=== PATIENT | female | born 1945 | race Caucasian/White ===

== ENCOUNTER 2017-02-05 05:13 | Observation (INO) ==
--- NOTE | 2017-02-05 05:32 | Emergency Department Note ---
Disposition Clinical Impression: Hypertensive urgency Congestive heart failure Qualifiers: Congestive heart failure type: unspecified congestive heart failure type Congestive heart failure chronicity: unspecified congestive heart failure chronicity Qualified Code(s): I50.9 - Heart failure, unspecified Asthma with exacerbation Qualifiers: Asthma severity: moderate persistent Qualified Code(s): J45.41 - Moderate persistent asthma with (acute) exacerbation Disposition: Admitted As Inpatient Condition: Good SOB HPI - General Chief Complaint: ED Shortness of Breath/Dyspnea Stated Complaint: high BP and Difficulty breathing Source: patient, EMS Mode of arrival: EMS Limitations: no limitations Nursing Notes Reviewed: Yes Vital Signs Reviewed: Yes - History of Present Illness Patient presents to the ED via EMS complaining of shortness of breath and high blood pressure. States she started feeling short of breath last night. She took her blood pressure at home and it was 198/99. She also reports an intermittent pressure in the left side of her chest that started last night as well. She rates it as 6 out of 10. She has had nausea but no vomiting. No lightheadedness or dizziness. She has had a dry cough for the past few days and some runny nose that she attributes to allergies. No nasal congestion or sore throat. She also reports intermittent cramping spasm type pain around her left ear that has been intermittent for months. She states she had brain surgery at [place] 7 years ago to remove something abnormal. States she was told that she had more of these spots in her brain that needed to be watched over time. She has not followed up with neurology in several years. She denies any abdominal pain. States she has had frequent loose bowel movements for many years. States she had a colonoscopy at one point that was normal. She does report blurred vision but states this is chronic and she has poor vision and has an eye appointment in February. She has a history of asthma and states she has been wheezing some recently. She is currently out of her inhaler which is just used as needed. She has a remote history of smoking as a teen. Denies any alcohol or drug use. She has a history of hypertension and is on metoprolol as well as lisinopril/hydrochlorothiazide. Overall is increased 200 mg daily last month. She is a diabetic on metformin. Fingerstick glucose by EMS was 1:30. States she occasionally has some swelling in her legs with no recent increase. Denies any cardiac history. - Related Data Home Medications Medication Instructions Recorded Confirmed Metoprolol [Lopressor] 200 mg PO QDPC 01/25/15 12/15/15 Atorvastatin [Lipitor] 20 mg PO HS 02/05/17 02/05/17 Lisinopril-HCTZ 20-12.5 [Prinzide 1 tab PO DAILY 02/05/17 02/05/17 20-12.5] Meloxicam [Mobic] 15 mg PO DAILY 02/05/17 02/05/17 metFORMIN 1,000 mg PO BID 02/05/17 02/05/17 Previous Rx's Medication Instructions Recorded Albuterol Sulfate [Albuterol 2 puff IH Q6HR PRN #1 hfa.aer.ad 11/23/15 Inhaler] Allergies Allergy/AdvReac Type Severity Reaction Status Date / Time aspirin AdvReac Nausea Verified 02/05/17 05:33 Constitutional: Denies: fever, chills, weakness, weight change Eyes: Denies: eye pain, eye discharge, vision change ENT ED: Denies: ear pain, throat pain, dental pain, hearing loss, epistaxis, congestion, dysphagia Cardiovascular: Reports: chest pain, edema. Denies: palpitations, dyspnea on exertion, syncope Respiratory: Reports: cough, dyspnea, wheezes. Denies: hemoptysis, stridor, sputum production Gastrointestinal: Reports: nausea, diarrhea (chronic). Denies: abdominal pain, vomiting, constipation, hematemesis, melena, hematochezia Genitourinary: Denies: dysuria, frequency, hematuria, discharge Musculoskeletal: Denies: back pain, neck pain, arthralgia, myalgia Integumentary: Denies: rash, abrasion, lesions Neurological: Reports: as per HPI, headache. Denies: weakness, numbness, paresthesias, confusion, abnormal gait, vertigo Psychiatric: Denies: anxiety, depression, suicidal thoughts, homicidal thoughts , auditory hallucinations, visual hallucinations Endocrine: Denies: fatigue Hematological/Lymphatic: Denies: easy bleeding, easy bruising Allergic/Immunologic: Denies: facial swelling, urticaria Past Medical History - Past Medical History Medical history: Reports: arthritis, asthma, hyperlipidemia, hypertension Surgical history: Reports: appendectomy, breast surgery, cholecystectomy, hysterectomy Psychiatric history: Reports: no psych history CLINICAL MOLECULAR GENETICIST history: Reports: no CLINICAL MOLECULAR GENETICIST history, bilateral tubal ligation - Social History Smoking Status: Former smoker Smokeless Tobacco Status: No Alcohol use: Reports: none Drug use: Reports: none Physical Exam - General Limitations: no limitations General appearance: alert, in no apparent distress, obese - Head Head exam: atraumatic, normocephalic, normal inspection - Eye Eye exam: Present: normal appearance, PERRL, EOMI - ENT ENT exam: normal exam, normal oropharynx, mucous membranes moist - Neck Neck exam: Present: normal inspection, full ROM, trachea midline - Chest Chest inspection: Present: normal inspection, symmetric chest wall rise, tenderness (left upper chest) - Respiratory Respiratory exam: Present: wheezes (scattered end expiratory). Absent: respiratory distress, accessory muscle use - Cardiovascular Cardiovascular exam: Present: regular rate, normal rhythm, normal heart sounds - Abdominal Exam Abdominal exam: Present: soft, Non-Tender. Absent: tenderness, distention, guarding, rebound, rigidity - Extremities Exam Extremities exam: Present: normal inspection, full ROM, pedal edema (trace bilaterally). Absent: tenderness - Back Exam Back exam: Present: normal inspection, full ROM. Absent: tenderness - Neurological Exam Neurological exam: Present: alert, oriented X3, CN II-XII intact, normal gait. Absent: motor sensory deficit - Expanded Neurological Exam Speech: Present: fluid speech Motor strength - LUE: 5/5 Motor strength - RUE: 5/5 Motor strength - LLE: 5/5 Motor strength - RLE: 5/5 - Psychiatric Psychiatric exam: Present: normal affect, normal mood - Skin Skin exam: Present: warm, dry, intact, normal color Course Course Narrative: Patient presents to the ED with shortness of breath, chest discomfort and hypertension. She is hypertensive on arrival at 206/98. Oxygen saturation is 92-93% on room air. She is not in any respiratory distress but does have some scattered end expiratory wheezing. Will give an albuterol treatment and obtain chest x-ray. Given her symptoms will give a small dose of labetalol for her current hypertensive urgency. We will check routine labs and EKG. Will also obtain CT scan of the head given her unclear history of prior brain surgery with current head pain. - Reevaluation(s) Reevaluation #1: Blood pressure has responded well to labetalol with improvement to 139/77. Head CT shows a small meningioma but no other acute abnormalities. This is likely what patient had surgery on the past. Laboratory studies showed no leukocytosis. Creatinine is slightly elevated from over a year ago. BNP is elevated at 335. Chest x-ray shows some mild pulmonary vascular congestion and small left pleural effusion. Feel patient would likely benefit from a small amount of diuresis and additional nebulizer treatments. Patient is agreeable to staying overnight for additional treatment and monitoring of her creatinine and blood pressure as well as continued nebulizer treatments. I spoke to the hospitalist on-call, Dr. Romano, who has agreed to accept the patient. Vital Signs Temperature 98.4 F 02/05/17 05:15 Pulse Rate 74 02/05/17 05:15 Respiratory Rate 22 02/05/17 05:15 Blood Pressure 206/98 02/05/17 05:15 O2 Sat by Pulse Oximetry 93 02/05/17 05:15 Temperature 98.4 F 02/05/17 05:15 Pulse Rate 62 02/05/17 07:14 Respiratory Rate 16 02/05/17 07:14 Blood Pressure 143/66 02/05/17 07:14 O2 Sat by Pulse Oximetry 94 02/05/17 07:14 Oxygen Delivery Oxygen Delivery Nasal Cannula Shortness of Breath/Dyspnea - Differential Diagnosis Likely: congestive heart failure, pneumonia, asthma with exacerbation - Medical Records Medical records reviewed: Yes I reviewed the patient's medical records. - Lab Data Lab results reviewed: Yes I reviewed the patient's lab results. Result diagrams: 02/05/17 05:50 02/05/17 05:50 Lab Results 02/05/17 02/05/17 02/05/17 Range/Units 05:50 05:50 05:50 WBC 7.6 (4.3-11.1) K/mcL RBC 4.60 (3.82-4.97) M/mcL Hgb 13.4 (11.5-15.4) g/dL Hct 41.6 (35.3-44.9) % MCV 90.4 (83.0-100.0) fL MCH 29.1 (28.0-33.3) pg MCHC 32.2 (31.6-35.5) g/dL RDW 13.4 (11.5-14.5) % Plt Count 203 (140-400) K/mcL MPV 10.2 (9.4-12.4) fL Immature Gran % 0.5 (0-4) % Seg Neutrophils % 75.4 % Lymphocytes % 17.4 % Monocytes % 5.4 % Eosinophils % 1.0 % Basophils % 0.3 % Neutrophils # 5.8 (1.6-8.9) K/mcL Lymphocytes # 1.3 (0.6-4.6) K/mcL Monocytes # 0.4 (0.0-1.3) K/mcL Eosinophils # 0.1 (0.0-0.6) K/mcL Basophils # 0.0 (0.0-0.2) K/mcL Sodium 143 (136-145) mEq/L Potassium 3.6 (3.5-4.5) mEq/L Chloride 103 (98-109) mEq/L Carbon Dioxide 28 (19-29) mEq/L BUN 23 H (7-20) mg/dL Creatinine 1.14 H (0.57-1.11) mg/dL Est GFR ( Amer) 57 L (> 60) Est GFR (Non-Af Amer) 47 L (> 60) BUN/Creatinine Ratio 20 (6-26) Glucose 136 H (70-99) mg/dL Calculated Osmolality 302 H (280-300) Calcium 9.4 (8.6-10.8) mg/dL Troponin I 0.01 (0-0.03) ng/mL B-Natriuretic Peptide (0-100) pg/mL 02/05/17 Range/Units 05:50 WBC (4.3-11.1) K/mcL RBC (3.82-4.97) M/mcL Hgb (11.5-15.4) g/dL Hct (35.3-44.9) % MCV (83.0-100.0) fL MCH (28.0-33.3) pg MCHC (31.6-35.5) g/dL RDW (11.5-14.5) % Plt Count (140-400) K/mcL MPV (9.4-12.4) fL Immature Gran % (0-4) % Seg Neutrophils % % Lymphocytes % % Monocytes % % Eosinophils % % Basophils % % Neutrophils # (1.6-8.9) K/mcL Lymphocytes # (0.6-4.6) K/mcL Monocytes # (0.0-1.3) K/mcL Eosinophils # (0.0-0.6) K/mcL Basophils # (0.0-0.2) K/mcL Sodium (136-145) mEq/L Potassium (3.5-4.5) mEq/L Chloride (98-109) mEq/L Carbon Dioxide (19-29) mEq/L BUN (7-20) mg/dL Creatinine (0.57-1.11) mg/dL Est GFR ( Amer) (> 60) Est GFR (Non-Af Amer) (> 60) BUN/Creatinine Ratio (6-26) Glucose (70-99) mg/dL Calculated Osmolality (280-300) Calcium (8.6-10.8) mg/dL Troponin I (0-0.03) ng/mL B-Natriuretic Peptide 335 H (0-100) pg/mL - Radiology Data Radiology results reviewed: Yes I reviewed the patient's radiology results. ITS Impressions Chest X-Ray 02/05/17 05:32 IMPRESSION: Stable chest. Stable cardiomegaly. Low lung volumes. Mild pulmonary vascular congestion. Small left pleural effusion. D/ / Titus Boyd MD / Titus Boyd MD Interpreting Provider: Titus Boyd MD Head CT 02/05/17 05:33 IMPRESSION: 1. No acute intracranial abnormality. 2. Hyperdense extra-axial mass along the right anterior temporal lobe with calcifications most likely represents a small meningioma. This can be further evaluated with MRI of the brain. 3. Generalized atrophy with chronic microvascular ischemic changes and a remote infarct within the right basal ganglia. D/ / Kirstie Murrell MD / Kirstie Murrell MD Interpreting Provider: Kirstie Murrell MD - EKG Data EKG attestation: Yes I reviewed and interpreted this EKG. EKG shows normal: Reports: sinus rhythm Rate: Reports: normal Rhythm: Reports: NSR [place]/QRS: Reports: normal Voltage: Reports: c/w LVH Interpretation: Reports: no acute changes, unchanged when compared to prior tracing (date) (11/22/15)
[2017-02-05] MEDS ORDERED: *HR* Labetalol 20 MG/4 ML SYRINGE IVP ONE (05:38)
[2017-02-05 06:03] LABS: Basophils % 0.3 %; Eosinophils # 0.1 K/mcL (0.0-0.6); Hematocrit 41.6 % (35.3-44.9); Hemoglobin 13.4 g/dL (11.5-15.4); Immature Granulocytes % 0.5 % (0-4); Lymphocytes # 1.3 K/mcL (0.6-4.6); Lymphocytes % 17.4 %; Mean Corpuscular HGB Conc 32.2 g/dL (31.6-35.5); Mean Corpuscular Hemoglobin 29.1 pg (28.0-33.3); Mean Corpuscular Volume 90.4 fL (83.0-100.0); Mean Platelet Volume 10.2 fL (9.4-12.4); Monocytes # 0.4 K/mcL (0.0-1.3); Monocytes % 5.4 %; Neutrophils # 5.8 K/mcL (1.6-8.9); Platelet Count 203 K/mcL (140-400); Red Cell Distribution Width 13.4 % (11.5-14.5); Segmented Neutrophils % 75.4 %
[2017-02-05] MEDS ORDERED: Albuterol 2.5 MG/3 ML NEBULIZER ONE ×2 (06:08→07:44)
[2017-02-05] MEDS: Albuterol 2.5 MG/3 ML NEBULIZER IH ONE ×2 (06:18)
[2017-02-05 06:20] LABS: Calcium 9.4 mg/dL (8.6-10.8); Potassium 3.6 mEq/L (3.5-4.5)
[2017-02-05] MEDS ORDERED: Albuterol 2.5 MG/3 ML NEBULIZER IH ONE (07:28)
[2017-02-05] MEDS ORDERED: Furosemide 20 MG/2 ML VIAL IVP ONE (07:29)
[2017-02-05] MEDS ORDERED: Naloxone 0.4 MG/ML INJ IVP PRN ×2 (07:34→07:44)
[2017-02-05] MEDS ORDERED: Dextrose Gel 15 GM PO PRN ×2 (07:44)
[2017-02-05] MEDS ORDERED: D5% in Water 1,000 ML IVC PRN (07:44)
[2017-02-05] MEDS ORDERED: *HR* Dextrose 50 % in Water (Syg) 50 ML SYRINGE IVP PRN (07:44)
[2017-02-05] MEDS ORDERED: Albuterol 2.5 MG/3 ML NEBULIZER IH SCH ×2 (07:45)
[2017-02-05] MEDS ORDERED: Albuterol 2.5 MG/3 ML NEBULIZER IH PRN ×2 (08:22→11:15)
[2017-02-05] MEDS: *HR* Metformin 500 MG TABLET PO SCH ×2 (08:28→16:52)
[2017-02-05] MEDS ORDERED: hydroCHLOROthiazide 25 MG TABLET PO SCH (09:00)
[2017-02-05] MEDS ORDERED: Lisinopril 20 MG TABLET PO SCH (09:00)
--- NOTE | 2017-02-05 10:57 | Internal Med History&Physical ---
Date of Encounter: 02/05/17 Time of Encounter: 10:25 Assessment and Plan (1) Congestive heart failure Current visit: Yes Status: Acute She will be given IV Lasix. Metoprolol will be continued but lisinopril/HCTZ will be held because of azotemia. An echocardiogram will be ordered. Qualifiers: Congestive heart failure type: unspecified congestive heart failure type Congestive heart failure chronicity: unspecified congestive heart failure chronicity Qualified Code(s): I50.9 - Heart failure, unspecified (2) Azotemia Current visit: Yes Status: Acute Creatinine was normal at 0.79 in November 2015. We will hold meloxicam and lisinopril/HCTZ and recheck labs in a.m. (3) Hypertensive urgency Current visit: Yes Status: Acute We will adjust blood pressure medications as needed. Internal Medicine - H&P: HPI Chief complaint: Dyspnea and hypertension Admitted From: Home Plans for Post Hospital Care: Home History of present illness: Ms. Marquez is a 71 year old female who came to emergency room stating she had onset of worsening dyspnea and significant blood pressure elevation shortly after midnight while at leisure. She did not do any interventions at home. After waiting a few hours and feeling unimproved she called the squad. She was brought to emergency room and evaluated and was found to have elevated BN peptide and blood pressure 206/98. She was given labetalol and admitted to [facility] floor for ongoing care needs. She states she feels dyspneic frequently, especially with exertion. She does not get chest pain on exertion. She has long-standing hypertension and states average readings at home are approximately 169/91. She denies [place] heart failure angina DVT or pulmonary embolus. She had a stress test approximately March 2010 prior to brain surgery with unremarkable results. She has had no further cardiac testing since then. Past Med Surg Social Fam HX - Past Medical History Medical history: arthritis, asthma, diabetes, hyperlipidemia, hypertension Psychiatric history: no psych history - Past Surgical History Surgical History: appendectomy, breast surgery, cholecystectomy, hysterectomy - Social History Smoking Status: Former smoker Smokeless Tobacco Status: No Alcohol use: none Drug use: none Internal Medicine - H&P: Meds Metoprolol [Lopressor] 100 mg PO QDPC 01/25/15 [History] Albuterol Sulfate [Albuterol Inhaler] 2 puff IH Q6HR PRN #1 hfa.aer.ad 11/23/15 [Rx] Atorvastatin [Lipitor] 20 mg PO HS 02/05/17 [History] Lisinopril-HCTZ 20-12.5 [Prinzide 20-12.5] 1 tab PO BID 02/05/17 [History] Meloxicam [Mobic] 15 mg PO DAILY 02/05/17 [History] metFORMIN 1,000 mg PO BID 02/05/17 [History] 3 Allergy/AdvReac Type Severity Reaction Status Date / Time aspirin AdvReac Nausea Verified 02/05/17 05:33 All Systems PM: A 10-system review of systems was performed and is negative for pertinent findings except as documented above in the HPI. Review of systems: Gen.: Her weight has increased from 95.254 kg February 2013 to 104.326 kg on admission now. Cardiovascular: As per history of present illness Respiratory: She smoked during her teenage years and has a diagnosis of asthma. She denies other chronic lung disease and does not use home oxygen and has not been tested for CORONA. GI: She had remote cholecystectomy denies disorders of her liver or exocrine pancreas. She denies EGD or colonoscopy. : She denies hematuria dysuria kidney stones or chronic kidney disease. She has had hysterectomy. Endocrine: She was diagnosed with DM 2 earlier this year after several years of "borderline diabetes". She has hyperlipidemia but no known thyroid disease. Neurologic: She had meningioma resection April 2010 and has another meningioma being treated nonoperatively at present. She denies large distribution strokes or seizures. Hematology/oncology: She denies blood disorders cancers or anemia Psychiatric: She has depression but does not take medication. She denies anxiety or other mental health issues [place] skeletal: She has DJD but denies gout or osteoporosis. - Constitutional Vitals: Temp Pulse Resp BP Pulse Ox 98.0 F 66 18 175/84 95 02/05/17 08:18 02/05/17 08:18 02/05/17 08:18 02/05/17 08:18 02/05/17 08:18 Exam: Gen.: She is a well-developed overweight female who appears in no severe distress at present time HEENT: Head is atraumatic and normocephalic. Eyes: EOMI. There is no scleral icterus. Mouth: Mucosa is moist. Neck: Supple and nontender. There is no thyromegaly or adenopathy noted. Heart: Regular without murmurs gallops or ectopics Lungs: No wheezes or crackles are heard. Abdomen: Soft and nontender. No masses or guarding are noted. Extremities: There is no cyanosis edema or clubbing noted. Dorsalis pedis and posttibial pulses are trace palpable bilaterally. Neurologic: Mental status: She is talkative and a good historian. Cranial nerves: Smile is symmetric. Forehead wrinkles bilaterally. Tongue protrudes midline. EOMI. Motor: There is no pronator drift. Cerebellar: Finger to nose is intact bilaterally. Skin: Warm and dry Internal Med - H&P Results - Labs CBC & Chem 7: 02/05/17 05:50 02/05/17 05:50 - VTE Reasons for not Prescribing Prophylaxis: Treatment not Indicated - Low risk for VTE
[2017-02-05] MEDS ORDERED: Nystatin POWDER 30 GM BOTTLE TP PRN (11:32)
[2017-02-05] MEDS: Insulin LISPRO 300 UNITS/3 ML VIAL SQ SCH ×2 (11:49→16:51)
[2017-02-05] MEDS: Furosemide 20 MG/2 ML VIAL IVP SCH (16:52)
[2017-02-06 04:53] LABS: Basophils % 0.5 %; Eosinophils # 0.1 K/mcL (0.0-0.6); Eosinophils % 0.8 %; Hematocrit 37.7 % (35.3-44.9); Hemoglobin 12.1 g/dL (11.5-15.4); Immature Granulocytes % 0.3 % (0-4); Lymphocytes # 1.4 K/mcL (0.6-4.6); Lymphocytes % 23.4 %; Mean Corpuscular HGB Conc 32.1 g/dL (31.6-35.5); Mean Corpuscular Hemoglobin 29.2 pg (28.0-33.3); Mean Corpuscular Volume 90.8 fL (83.0-100.0); Mean Platelet Volume 10.5 fL (9.4-12.4); Monocytes # 0.3 K/mcL (0.0-1.3); Monocytes % 5.5 %; Neutrophils # 4.2 K/mcL (1.6-8.9); Platelet Count 176 K/mcL (140-400); Red Blood Count 4.15 M/mcL (3.82-4.97); Red Cell Distribution Width 13.6 % (11.5-14.5); Segmented Neutrophils % 69.5 %
[2017-02-06 05:18] LABS: Alanine Aminotransferase 12 Units/L (0-55); Albumin 2.8 g/dL (3.5-5.0); Albumin/Globulin Ratio 0.8 (1.1-2.2); Alkaline Phosphatase 83 Units/L (38-126); Aspartate Amino Transferase 11 Units/L (5-34); BUN/Creatinine Ratio 36 (6-26); Bilirubin,Total 0.4 mg/dL (0.2-1.2); Blood Urea Nitrogen 27 mg/dL (7-20); Calcium 8.9 mg/dL (8.6-10.8); Carbon Dioxide 31 mEq/L (19-29); Chloride 100 mEq/L (98-109); Globulin 3.4 g/dL (2.4-3.5); Glucose 119 mg/dL (70-99); Magnesium 1.4 mg/dL (1.6-2.6); Osmolality,Calculated 302 (280-300); Potassium 3.3 mEq/L (3.5-4.5); Sodium 143 mEq/L (136-145); Total Protein 6.2 g/dL (6.0-8.3); eGFR For African Americans > 60 (> 60); eGFR For Non-African Americans > 60 (> 60)
[2017-02-06 05:39] LABS: Thyroid Stimulating Hormone 2.786 mcIU/mL (0.350-4.840)
[2017-02-06] MEDS: Furosemide 20 MG/2 ML VIAL IVP SCH (09:05)
[2017-02-06] MEDS: Insulin LISPRO 300 UNITS/3 ML VIAL SQ SCH ×3 (09:05→16:12)
[2017-02-06] MEDS: *HR* Metformin 500 MG TABLET PO SCH ×2 (09:05→16:25)
--- NOTE | 2017-02-06 10:00 | Internal Med Progress Note ---
Date of Encounter: 02/06/17 Time of Encounter: 09:50 - Assessment and plan (1) Congestive heart failure Current Visit: Yes Status: Acute Assessment and plan: February 06. Continue metoprolol and IV Lasix. Echocardiogram will be done later today. Anticipate discharge home tomorrow. Qualifiers: Congestive heart failure type: unspecified congestive heart failure type Congestive heart failure chronicity: unspecified congestive heart failure chronicity Qualified Code(s): I50.9 - Heart failure, unspecified (2) Azotemia Current Visit: Yes Status: Acute Assessment and plan: February 06. Resolved. Continue to withhold lisinopril/HCTZ. (3) Hypertensive urgency Current Visit: Yes Status: Acute Assessment and plan: February 06. We will add amlodipine (4) Hypomagnesemia Current Visit: Yes Status: Acute Assessment and plan: February 06. Probably secondary to HCTZ use. Will add magnesium oxide. (5) Hypokalemia Current Visit: Yes Status: Acute Assessment and plan: February 06. Probably secondary to HCTZ and Lasix. Will add potassium supplement. - Subjective Interval history: February 06. She has no new complaints and feels better. - Constitutional Vitals: Temp Pulse Resp BP Pulse Ox 98.1 F 59 18 177/79 95 02/06/17 06:56 02/06/17 06:56 02/06/17 06:56 02/06/17 06:56 02/06/17 09:36 Exam: She is resting comfortably in bed and appears in no acute distress. Her affect is overall cheerful. I reviewed her medications and lab results. Internal Medicine: Result - Labs CBC & Chem 7: 02/06/17 04:05 02/06/17 04:05 Labs: Short CBC 02/06/17 Range/Units 04:05 WBC 6.0 (4.3-11.1) K/mcL Hgb 12.1 (11.5-15.4) g/dL Hct 37.7 (35.3-44.9) % Plt Count 176 (140-400) K/mcL Neutrophils # 4.2 (1.6-8.9) K/mcL BMP 02/06/17 04:05 Sodium 143 Potassium 3.3 L Chloride 100 Carbon Dioxide 31 H BUN 27 H Creatinine 0.74 Glucose 119 H Calcium 8.9 Liver Function 02/06/17 Range/Units 04:05 Total Bilirubin 0.4 (0.2-1.2) mg/dL AST 11 (5-34) Units/L ALT 12 (0-55) Units/L Alkaline Phosphatase 83 (38-126) Units/L Albumin 2.8 L (3.5-5.0) g/dL - VTE Reasons for not Prescribing Prophylaxis: Treatment not Indicated - Low risk for VTE Consult Discharge Plan - Plan Referrals: NONE,PCP [Primary Care Provider] -
[2017-02-06] MEDS: Magnesium Oxide 400 MG TABLET PO SCH ×2 (12:42→20:43)
[2017-02-06] MEDS: Ondansetron ODT 4 MG TAB.RAPDIS SL PRN (12:42)
[2017-02-06] MEDS: Bumetanide 1 MG TABLET PO SCH (12:43)
--- NOTE | 2017-02-06 17:05 | Electrocardiograph Report ---
[address] [address] Test Date: 2017-02-05 Pat Name: Anuja Marquez Department: [id number] Room: [facility] Gender: F Senior Sql Database Developer: Jake : 1945 Requested By: Nida Fairchild Order Number: [id number] Reading MD: Carolyn Moya Measurements Intervals [place] Rate: 62 P: 69 [place]: 163 QRS: 57 QRSD: 98 T: 65 QT: 385 QTc: 391 Interpretive Statements SINUS RHYTHM MINIMAL VOLTAGE CRITERIA FOR LVH, CONSIDER NORMAL VARIANT NONSPECIFIC ST ABNORMALITIES Electronically Signed On 02-06-2017 17:03:44 EDT by Carolyn Moya
[2017-02-06] MEDS ORDERED: Insulin LISPRO 300 UNITS/3 ML VIAL SQ SCH (21:00)
[2017-02-07 06:36] VITALS: BP 136/73
[2017-02-07] MEDS: Insulin LISPRO 300 UNITS/3 ML VIAL SQ SCH (07:45)
[2017-02-07] MEDS: Magnesium Oxide 400 MG TABLET PO SCH (08:05)
[2017-02-07] MEDS: Ondansetron ODT 4 MG TAB.RAPDIS SL PRN (08:05)
[2017-02-07] MEDS: Bumetanide 1 MG TABLET PO SCH (08:05)
[2017-02-07] MEDS: *HR* Metformin 500 MG TABLET PO SCH (08:06)
--- NOTE | 2017-02-07 10:01 | Discharge Summary ---
Date of Encounter: 02/07/17 Time of Encounter: 09:50 - Discharge Diagnosis (1) Congestive heart failure Priority: Primary Status: Acute Qualifiers: Congestive heart failure type: unspecified congestive heart failure type Congestive heart failure chronicity: unspecified congestive heart failure chronicity Qualified Code(s): I50.9 - Heart failure, unspecified (2) Azotemia Priority: Secondary Status: Resolved (3) Hypertensive urgency Priority: Secondary Status: Resolved (4) Hypomagnesemia Priority: Secondary Status: Acute (5) Hypokalemia Priority: Secondary Status: Acute - Discharge Medications Prescriptions: Bumetanide [Bumex] 1 mg PO DAILY #30 tablet Isosorbide MONOnitrate (24 HR) [Imdur] 30 mg PO DAILY #30 tab.er.24h Lisinopril [Zestril] 20 mg PO DAILY #30 tablet Magnesium Oxide [Mag-Ox] 400 mg PO DAILY #7 tablet Potassium Chloride 10 meq PO DAILY #30 tab.er.prt Home Medications: Metoprolol [Lopressor] 100 mg PO QDPC 01/25/15 [History] Albuterol Sulfate [Albuterol Inhaler] 2 puff IH Q6HR PRN #1 hfa.aer.ad 11/23/15 [Rx] Atorvastatin [Lipitor] 20 mg PO HS 02/05/17 [History] metFORMIN 1,000 mg PO BID 02/05/17 [History] Bumetanide [Bumex] 1 mg PO DAILY #30 tablet 02/07/17 [Rx] Isosorbide MONOnitrate (24 HR) [Imdur] 30 mg PO DAILY #30 tab.er.24h 02/07/17 [ Rx] Lisinopril [Zestril] 20 mg PO DAILY #30 tablet 02/07/17 [Rx] Magnesium Oxide [Mag-Ox] 400 mg PO DAILY #7 tablet 02/07/17 [Rx] Potassium Chloride 10 meq PO DAILY #30 tab.er.prt 02/07/17 [Rx] Allergies/Adverse Reactions: 3 Allergy/AdvReac Type Severity Reaction Status Date / Time aspirin AdvReac Nausea Verified 02/05/17 05:33 Procedures/tests Complete & Pending: Procedures Performed prior 72 hours Category Date Time Status EV echocardiogram Routine Y 02/06/17 11:13 Completed Date of admission: 02/05/17 07:35 Primary care physician: Bernadette Rojas CNP Consults: 02/05/17 09:11 [facility] to [facility] [CONS] Routine Reason for SW Consult: pt has homemaking services through [facility] 2x week - Patient Status Disposition: Home, Self-Care Condition: Good Overall status at discharge: patient is progressing back to baseline - Discharge Instructions Follow Up With: Bernadette Rojas, FIONA [Advanced Practice Nurse] - 1 week - Diet and Activity Activity: resume usual activities as tolerated Diet: advance to your usual diet Hospital course: Ms. Marquez is a 71 year old female who came to emergency room stating she had onset of worsening dyspnea and significant blood pressure elevation shortly after midnight while at leisure. She did not do any interventions at home. After waiting a few hours and feeling unimproved she called the squad. She was brought to emergency room and evaluated and was found to have elevated BN peptide and blood pressure 206/98. She was given labetalol and admitted to [facility] for ongoing care needs. Initial orders were written by the emergency room physician. I saw her on February 05 and performed the history and physical. Lisinopril/HCTZ was held because of azotemia. She was initially given IV Lasix. She was later changed to oral Bumex. She had improvement in BN peptide to 177 by the day after admission. Her dyspnea significantly improved. Mobic and lisinopril/HCTZ were discontinued. Creatinine decreased to 0.74 and estimated GFR nisa to greater than 60. She will remain off these at home. Blood pressure remained satisfactory to slightly elevated during hospital stay. She will be restarted back on lisinopril 20 mg daily and continue metoprolol as at home. She will also receive isosorbide and Bumex. Supplemental potassium and magnesium were given for hypokalemia and hypomagnesemia respectively. These will be continued at home. An echocardiogram was done to further evaluate her cardiac status. The LVEF was 60%. There was mild concentric LVH with a ventricular septal and posterior wall thickness measurements 1.3 cm each. There was moderate diastolic dysfunction seen. No significant valvular abnormalities were ordered. On February 07 she was stable for discharge home. She will follow with her PCP Bernadette Rojas CNP within 1 week. Room air oximetry will be checked prior to discharge on 6 minute walk. - Time Spent with Patient Total time spent providing and/or coordinating discharge services: - Constitutional Vitals: Temp Pulse Resp BP Pulse Ox 97.9 F 66 18 136/73 94 02/07/17 06:33 02/07/17 06:33 02/07/17 06:33 02/07/17 06:33 02/07/17 06:33 - VTE Reasons for not Prescribing Prophylaxis: Treatment not Indicated - Low risk for VTE
--- NOTE | 2017-02-07 11:04 | Physician Discharge Referral ---
Home Health/Hosp Referral Info Transfer to: Home Health Attending Provider: Juan Antonio Provider in Charge Post Discharge: PCP (Bernadette Rojas CNP) - Diagnosis (1) Congestive heart failure Priority: Primary Status: Acute (2) Azotemia Priority: Secondary Status: Resolved (3) Hypertensive urgency Priority: Secondary Status: Resolved (4) Hypomagnesemia Priority: Secondary Status: Acute (5) Hypokalemia Priority: Secondary Status: Acute - Respiratory Orders Oxygen / L per min (2 L/m by nasal cannula 02/01 with portable gas and concentrator.) Smoking Cessation: Smoking cessation has been advised. For more information, call the [place] Tobacco Quit Line at 7-891-BDWZ-NOW. - Diet/Nutrition Diet/Nutrition Orders: No Added Salt (ABNER) - Activity Activity Orders: Ambulate - Services Needed Following services are medically necessary services: Nursing, Home Health Aide, Physical Therapy, Occupational Therapy - Transfer Medications Prescriptions: Bumetanide [Bumex] 1 mg PO DAILY #30 tablet Isosorbide MONOnitrate (24 HR) [Imdur] 30 mg PO DAILY #30 tab.er.24h Lisinopril [Zestril] 20 mg PO DAILY #30 tablet Magnesium Oxide [Mag-Ox] 400 mg PO DAILY #7 tablet Potassium Chloride 10 meq PO DAILY #30 tab.er.prt Home Medications: Metoprolol [Lopressor] 100 mg PO QDPC 01/25/15 [History] Albuterol Sulfate [Albuterol Inhaler] 2 puff IH Q6HR PRN #1 hfa.aer.ad 11/23/15 [Rx] Atorvastatin [Lipitor] 20 mg PO HS 02/05/17 [History] metFORMIN 1,000 mg PO BID 02/05/17 [History] Bumetanide [Bumex] 1 mg PO DAILY #30 tablet 02/07/17 [Rx] Isosorbide MONOnitrate (24 HR) [Imdur] 30 mg PO DAILY #30 tab.er.24h 02/07/17 [ Rx] Lisinopril [Zestril] 20 mg PO DAILY #30 tablet 02/07/17 [Rx] Magnesium Oxide [Mag-Ox] 400 mg PO DAILY #7 tablet 02/07/17 [Rx] Potassium Chloride 10 meq PO DAILY #30 tab.er.prt 02/07/17 [Rx] Allergies/Adverse Reactions: 3 Allergy/AdvReac Type Severity Reaction Status Date / Time aspirin AdvReac Nausea Verified 02/05/17 05:33 Certification: Further, I certify that my clinical findings support that this patient is homebound (i.e. absences from home require considerable and taxing effort and are for medical reasons or yazdanism services or infrequently or short duration when for other reasons) because: Homebound Reason: Leaving home requires considerable and taxing effort due to condition (Impaired mobility due to deconditioning and hypoxemia) Attestation: My signature below is to certify that this patient is under my care and that I, or nurse practitioner, or a physician's veterinarian assistant working with me, has a face-to -face encounter with this patient.
== END 2017-02-07 14:20 | disposition home or self-care (01) ==
LOC: INPPIK 05:13 → EMEROOPIK 05:13 → INPPIK 07:54
PROVIDERS: ADMIT Internal Medicine; ATTEND Internal Medicine

== ENCOUNTER 2017-03-04 17:50 | Observation (INO) ==
--- NOTE | 2017-03-04 18:02 | Emergency Department Note ---
Disposition Clinical Impression: CHF (congestive heart failure) Qualifiers: Congestive heart failure type: unspecified congestive heart failure type Congestive heart failure chronicity: unspecified congestive heart failure chronicity Qualified Code(s): I50.9 - Heart failure, unspecified Disposition: Admitted As Inpatient Condition: Good Time of Disposition: 19:10 SOB HPI - General Chief Complaint: ED Shortness of Breath/Dyspnea Stated Complaint: blanche Time Seen by Provider: 03/04/17 17:51 Source: EMS Limitations: no limitations - History of Present Illness Patient presents to the emergency Department for ongoing shortness of breath. She states that she has had episodes of this intermittently for the past 3 weeks. She has been told she has CHF. She has been referred to cardiology, this appointment is not until March. She reports increasing shortness of breath with some lower extremity edema over the past 1-2 days. She denies asymmetric calf discomfort or erythema. She denies chest pain. She endorses dyspnea on exertion as well as orthopnea. - Related Data Home Medications Medication Instructions Recorded Confirmed Atorvastatin [Lipitor] 20 mg PO HS 02/27/17 03/04/17 Furosemide [Lasix] 20 mg PO DAILY 02/27/17 03/04/17 Glimepiride [Amaryl] 2 mg PO 0800 02/27/17 03/04/17 Isosorbide MONOnitrate (24 HR) 30 mg PO DAILY 02/27/17 03/04/17 [Imdur] Metoprolol Succinate 200 mg PO DAILY 02/27/17 03/04/17 Potassium Chloride [Klor-Con 10] 10 meq PO DAILY 02/27/17 03/04/17 cloNIDine HCl [CloNIDine HCl] 0.2 mg PO DAILY 03/04/17 03/04/17 hydroCHLOROthiazide 12.5 mg PO DAILY 03/04/17 03/04/17 [Hydrochlorothiazide] Allergies Allergy/AdvReac Type Severity Reaction Status Date / Time aspirin AdvReac Nausea Verified 02/12/17 01:22 All systems ED: reviewed and negative except as stated. Review of Systems: As Per HPI Past Medical History - Past Medical History Source: patient Medical history: Reports: arthritis, asthma, CHF, diabetes, hyperlipidemia, hypertension Surgical history: Reports: appendectomy, breast surgery, cholecystectomy, hysterectomy, other (Excision of meningioma) Psychiatric history: Reports: no psych history [employer] history: Reports: no [employer] history, bilateral tubal ligation - Social History Smoking Status: Former smoker Smokeless Tobacco Status: No Alcohol use: Reports: none Drug use: Reports: none Physical Exam - General Limitations: no limitations General appearance: alert, in no apparent distress - Head Head exam: atraumatic, normocephalic, normal inspection - Eye Eye exam: Present: normal appearance. Absent: scleral icterus - ENT ENT exam: normal exam, normal oropharynx, mucous membranes moist - Respiratory Respiratory exam: Present: other (Rales bibasilar). Absent: respiratory distress, accessory muscle use, prolonged expiratory phase - Abdominal Exam Abdominal exam: Present: soft, Non-Tender, normal bowel sounds. Absent: tenderness, distention, guarding, rebound, rigidity - Extremities Exam Extremities exam: Present: pedal edema (1+ edema bilateral lower extremities without asymmetry erythema calf discomfort or signs of DVT). Absent: calf tenderness - Neurological Exam Neurological exam: Present: alert, oriented X3 - Expanded Neurological Exam Patient oriented to: Present: person, place, time Coma Scale Eye Opening: Spontaneous Coma Scale Motor Response: Obeys Commands Coma Scale Verbal Response: Oriented Coma Scale Total: 15 - Psychiatric Psychiatric exam: Present: normal affect, normal mood - Skin Skin exam: Present: warm, dry, intact, normal color Course Vital Signs O2 Sat by Pulse Oximetry 96 03/04/17 17:53 Temperature 98.4 F 03/04/17 17:54 Pulse Rate 60 03/04/17 19:06 Respiratory Rate 18 03/04/17 19:06 Blood Pressure 163/72 03/04/17 19:06 O2 Sat by Pulse Oximetry 97 03/04/17 19:06 Oxygen Delivery Oxygen Delivery Nasal Cannula Shortness of Breath/Dyspnea - [facility] Narrative Medical decision making narrative: 1710: Patient resting comfortably. Vital signs stable. I discussed the case with Dr. Romano, patient admitted for ongoing evaluation and treatment. - Lab Data Lab results reviewed: Yes I reviewed the patient's lab results. Result diagrams: 03/04/17 18:06 03/04/17 18:06 Lab Results 03/04/17 03/04/17 03/04/17 Range/Units 18:06 18:06 18:06 WBC 6.8 (4.3-11.1) K/mcL RBC 4.35 (3.82-4.97) M/mcL Hgb 12.6 (11.5-15.4) g/dL Hct 39.7 (35.3-44.9) % MCV 91.3 (83.0-100.0) fL MCH 29.0 (28.0-33.3) pg MCHC 31.7 (31.6-35.5) g/dL RDW 13.5 (11.5-14.5) % Plt Count 223 (140-400) K/mcL MPV 9.9 (9.4-12.4) fL Immature Gran % 0.3 (0-4) % Seg Neutrophils % 72.0 % Lymphocytes % 21.4 % Monocytes % 5.3 % Eosinophils % 0.9 % Basophils % 0.1 % Neutrophils # 4.9 (1.6-8.9) K/mcL Lymphocytes # 1.5 (0.6-4.6) K/mcL Monocytes # 0.4 (0.0-1.3) K/mcL Eosinophils # 0.1 (0.0-0.6) K/mcL Basophils # 0.0 (0.0-0.2) K/mcL PT 11.3 (9.4-12.1) Seconds INR 1.1 APTT 32.2 (26.0-36.0) Seconds Sodium 142 (136-145) mEq/L Potassium 3.7 (3.5-4.5) mEq/L Chloride 103 (98-109) mEq/L Carbon Dioxide 27 (19-29) mEq/L BUN 17 (7-20) mg/dL Creatinine 0.73 (0.57-1.11) mg/dL Est GFR ( Amer) > 60 (> 60) Est GFR (Non-Af Amer) > 60 (> 60) BUN/Creatinine Ratio 23 (6-26) Glucose 112 H (70-99) mg/dL Calculated Osmolality 296 (280-300) Calcium 9.3 (8.6-10.8) mg/dL Troponin I (0-0.03) ng/mL B-Natriuretic Peptide (0-100) pg/mL 03/04/17 03/04/17 Range/Units 18:06 18:06 WBC (4.3-11.1) K/mcL RBC (3.82-4.97) M/mcL Hgb (11.5-15.4) g/dL Hct (35.3-44.9) % MCV (83.0-100.0) fL MCH (28.0-33.3) pg MCHC (31.6-35.5) g/dL RDW (11.5-14.5) % Plt Count (140-400) K/mcL MPV (9.4-12.4) fL Immature Gran % (0-4) % Seg Neutrophils % % Lymphocytes % % Monocytes % % Eosinophils % % Basophils % % Neutrophils # (1.6-8.9) K/mcL Lymphocytes # (0.6-4.6) K/mcL Monocytes # (0.0-1.3) K/mcL Eosinophils # (0.0-0.6) K/mcL Basophils # (0.0-0.2) K/mcL PT (9.4-12.1) Seconds INR APTT (26.0-36.0) Seconds Sodium (136-145) mEq/L Potassium (3.5-4.5) mEq/L Chloride (98-109) mEq/L Carbon Dioxide (19-29) mEq/L BUN (7-20) mg/dL Creatinine (0.57-1.11) mg/dL Est GFR ( Amer) (> 60) Est GFR (Non-Af Amer) (> 60) BUN/Creatinine Ratio (6-26) Glucose (70-99) mg/dL Calculated Osmolality (280-300) Calcium (8.6-10.8) mg/dL Troponin I 0.00 (0-0.03) ng/mL B-Natriuretic Peptide 248 H (0-100) pg/mL ITS Impressions Chest X-Ray 03/04/17 17:53 IMPRESSION: Slightly increased vascular congestion in a patient with cardiomegaly. D/ / Osmel Fitch MD / Osmel Fitch MD Interpreting Provider: Osmel Fitch MD - Radiology Data Radiology results reviewed: Yes I reviewed the patient's radiology results. - EKG Data EKG attestation: Yes I reviewed and interpreted this EKG. EKG shows normal: Reports: sinus rhythm (Normal sinus rhythm rate of 66. Nonspecific ST-T changes without evidence of acute injury)
[2017-03-04 18:14] LABS: Basophils % 0.1 %; Eosinophils # 0.1 K/mcL (0.0-0.6); Eosinophils % 0.9 %; Hematocrit 39.7 % (35.3-44.9); Hemoglobin 12.6 g/dL (11.5-15.4); Immature Granulocytes % 0.3 % (0-4); Lymphocytes # 1.5 K/mcL (0.6-4.6); Lymphocytes % 21.4 %; Mean Corpuscular HGB Conc 31.7 g/dL (31.6-35.5); Mean Corpuscular Volume 91.3 fL (83.0-100.0); Mean Platelet Volume 9.9 fL (9.4-12.4); Monocytes # 0.4 K/mcL (0.0-1.3); Monocytes % 5.3 %; Neutrophils # 4.9 K/mcL (1.6-8.9); Platelet Count 223 K/mcL (140-400); Red Blood Count 4.35 M/mcL (3.82-4.97); Red Cell Distribution Width 13.5 % (11.5-14.5)
[2017-03-04 18:19] LABS: INR 1.1; Prothrombin Time 11.3 Seconds (9.4-12.1)
[2017-03-04 18:22] LABS: Activated Partial Thrombo Time 32.2 Seconds (26.0-36.0)
[2017-03-04 18:29] LABS: BUN/Creatinine Ratio 23 (6-26); Blood Urea Nitrogen 17 mg/dL (7-20); Calcium 9.3 mg/dL (8.6-10.8); Carbon Dioxide 27 mEq/L (19-29); Chloride 103 mEq/L (98-109); Glucose 112 mg/dL (70-99); Osmolality,Calculated 296 (280-300); Potassium 3.7 mEq/L (3.5-4.5); Sodium 142 mEq/L (136-145); eGFR For African Americans > 60 (> 60); eGFR For Non-African Americans > 60 (> 60)
[2017-03-04] MEDS ORDERED: Nitroglycerin 1 INCH/GM PACKET TP ONE (18:48)
[2017-03-04] MEDS ORDERED: Furosemide 40 MG/4 ML VIAL IVP ONE (18:49)
[2017-03-04] MEDS ORDERED: Naloxone 0.4 MG/ML INJ IVP PRN (19:12)
[2017-03-05] MEDS ORDERED: Naloxone 0.4 MG/ML INJ IVP PRN (04:55)
[2017-03-05 06:43] LABS: Basophils % 0.3 %; Eosinophils # 0.1 K/mcL (0.0-0.6); Eosinophils % 1.4 %; Hematocrit 36.9 % (35.3-44.9); Hemoglobin 11.7 g/dL (11.5-15.4); Immature Granulocytes % 0.3 % (0-4); Lymphocytes # 1.2 K/mcL (0.6-4.6); Lymphocytes % 21.7 %; Mean Corpuscular HGB Conc 31.7 g/dL (31.6-35.5); Mean Corpuscular Hemoglobin 29.3 pg (28.0-33.3); Mean Corpuscular Volume 92.3 fL (83.0-100.0); Mean Platelet Volume 10.2 fL (9.4-12.4); Monocytes # 0.3 K/mcL (0.0-1.3); Monocytes % 5.8 %; Platelet Count 185 K/mcL (140-400); Red Cell Distribution Width 13.5 % (11.5-14.5); Segmented Neutrophils % 70.5 %
[2017-03-05 07:03] LABS: BUN/Creatinine Ratio 22 (6-26); Blood Urea Nitrogen 15 mg/dL (7-20); Calcium 8.8 mg/dL (8.6-10.8); Carbon Dioxide 30 mEq/L (19-29); Chloride 104 mEq/L (98-109); Chol/HDL Ratio 5.3 (0-4.9); Cholesterol 181 mg/dL (< 200); Glucose 104 mg/dL (70-99); HDL Cholesterol 34 mg/dL (40-59); LDL Cholesterol,Calculated 121 mg/dL (0-99); Magnesium 1.7 mg/dL (1.6-2.6); Osmolality,Calculated 299 (280-300); Phosphorous 3.9 mg/dL (2.3-4.7); Potassium 3.5 mEq/L (3.5-4.5); Sodium 144 mEq/L (136-145); Triglycerides 128 mg/dL (< 150); eGFR For African Americans > 60 (> 60); eGFR For Non-African Americans > 60 (> 60)
[2017-03-05] MEDS ORDERED: *HR* Glimepiride 2 MG TABLET PO SCH (08:00)
[2017-03-05] MEDS ORDERED: hydroCHLOROthiazide 25 MG TABLET PO SCH (09:00)
[2017-03-05] MEDS ORDERED: Metoprolol XL (24 HR) Succ 50 MG TAB.ER.24H PO SCH (09:00)
[2017-03-05] MEDS ORDERED: Isosorbide MONOnitrate (24 HR) 30 MG TAB.ER.24H PO SCH ×2 (09:00)
[2017-03-05] MEDS ORDERED: cloNIDine HCl 0.1 MG TABLET PO SCH ×2 (09:00)
[2017-03-05] MEDS ORDERED: Furosemide 20 MG TABLET PO SCH ×2 (09:00)
[2017-03-05] MEDS: hydroCHLOROthiazide 25 MG TABLET PO SCH (09:19)
[2017-03-05] MEDS: Metoprolol XL (24 HR) Succ 50 MG TAB.ER.24H PO SCH (09:19)
[2017-03-05] MEDS: *HR* Glimepiride 2 MG TABLET PO SCH (09:20)
[2017-03-05] MEDS ORDERED: Isosorbide MONOnitrate (24 HR) 30 MG TAB.ER.24H PO ONE (10:45)
--- NOTE | 2017-03-05 10:46 | Internal Med History&Physical ---
Date of Encounter: 03/05/17 Time of Encounter: 10:15 Assessment and Plan (1) Congestive heart failure Current visit: Yes Status: Chronic She will receive IV Bumex and higher dose isosorbide. Lisinopril will be restarted. Toprol will be continued. Qualifiers: Congestive heart failure type: diastolic Congestive heart failure chronicity: chronic Qualified Code(s): I50.32 - Chronic diastolic (congestive ) heart failure (2) Hypertension Current visit: No Status: Chronic Continue Toprol and restart lisinopril. Clonidine will be held for now. Isosorbide dose will be increased . Qualifiers: Hypertension type: essential hypertension Qualified Code(s): I10 - Essential (primary) hypertension Internal Medicine - H&P: HPI Chief complaint: Dyspnea Admitted From: Home Plans for Post Hospital Care: Home History of present illness: Ms. Marquez is a 71 year old female who came to emergency room stating she had increasing dyspnea over the past 3 weeks. She reports no significant angina type chest pains associated. She came to emergency room and was evaluated and felt to have exacerbation of heart failure. She was admitted to [facility] for ongoing care needs. She was discharged from [facility] 02/07/2017 after admission for CHF. An echocardiogram done during the visit showed preserved LVEF of 60% but diastolic dysfunction was present. She was placed on Bumex and isosorbide. Metoprolol was increased to 200 mg daily. She qualified for home oxygen on a 6 minute walk prior to discharge. She states she saw her PCP approximately 3 weeks ago and her medications were adjusted with Bumex discontinued and Lasix restarted. Lisinopril was not continued. She reports she has gained 6 pounds of weight over the last 3 weeks. Cardiovascular history significant for hypertension but no [place] DVT or pulmonary embolus. She reports a stress test done approximately March 2010 with unremarkable results. She has had no further cardiac testing since then. Past Med Surg Social Fam HX - Past Medical History Medical history: arthritis, asthma, CHF, diabetes, hyperlipidemia, hypertension Psychiatric history: no psych history - Past Surgical History Surgical History: appendectomy, breast surgery, cholecystectomy, hysterectomy, other - Social History Smoking Status: Former smoker Smokeless Tobacco Status: No Alcohol use: none Drug use: none Internal Medicine - H&P: Meds Atorvastatin [Lipitor] 20 mg PO HS 02/27/17 [History] Furosemide [Lasix] 20 mg PO DAILY 02/27/17 [History] Glimepiride [Amaryl] 2 mg PO 0800 02/27/17 [History] Isosorbide MONOnitrate (24 HR) [Imdur] 30 mg PO DAILY 02/27/17 [History] Metoprolol Succinate 200 mg PO DAILY 02/27/17 [History] Potassium Chloride [Klor-Con 10] 10 meq PO DAILY 02/27/17 [History] cloNIDine HCl [CloNIDine HCl] 0.2 mg PO DAILY 03/04/17 [History] hydroCHLOROthiazide [Hydrochlorothiazide] 12.5 mg PO DAILY 03/04/17 [History] 3 Allergy/AdvReac Type Severity Reaction Status Date / Time aspirin AdvReac Nausea Verified 03/05/17 05:59 All Systems PM: A 10-system review of systems was performed and is negative for pertinent findings except as documented above in the HPI. Review of systems: Review of systems from her recent [facility] admission were reviewed and revised as below. Gen.: Her weight has increased from 95.254 kg February 2013 to 102.421 kg on admission now. Cardiovascular: As per history of present illness Respiratory: She smoked during her teenage years and has a diagnosis of asthma. She denies other chronic lung disease and does not use home oxygen and has not been tested for OCRONA. GI: She had remote cholecystectomy denies disorders of her liver or exocrine pancreas. She denies EGD or colonoscopy. : She denies hematuria dysuria kidney stones or chronic kidney disease. She has had hysterectomy. Endocrine: She was diagnosed with DM 2 earlier this year after several years of "borderline diabetes". She has hyperlipidemia but no known thyroid disease. Neurologic: She had meningioma resection April 2010 and has another meningioma being treated nonoperatively at present. She denies large distribution strokes or seizures. Hematology/oncology: She denies blood disorders cancers or anemia Psychiatric: She has depression but does not take medication. She denies anxiety or other mental health issues Musk skeletal: She has DJD but denies gout or osteoporosis. - Constitutional Vitals: Temp Pulse Resp BP Pulse Ox 97.7 F 57 16 155/68 98 03/05/17 06:40 03/05/17 06:40 03/05/17 06:40 03/05/17 06:40 03/05/17 06:40 Exam: Gen.: She is a well developed overweight female lying in bed who appears in no acute distress. HEENT: Head is atraumatic and normocephalic. Eyes: EOMI. There is no scleral icterus. Mouth: Mucosa is moist. Neck: Supple and nontender. There is no thyromegaly or adenopathy noted. Heart: Regular without murmurs gallops or ectopics. Chest: She has mild tenderness in the lower costosternal joints on mild chest compression Lungs: No wheezes or crackles are heard. Abdomen: No masses or guarding are noted. Extremities: She has trace to 1+ edema of the dorsum of the feet and lower anterior shins bilaterally. Dorsalis pedis and posterior tibial pulses are trace palpable bilaterally. Neurologic: Mental status: She is talkative and a good historian. Cranial nerves: Smile is symmetric. Forehead wrinkles bilaterally. Tongue protrudes midline. EOMI. Motor: There is no pronator drift. Cerebellar: Finger to nose is intact bilaterally. Skin: Warm and dry Internal Med - H&P Results - Labs CBC & Chem 7: 03/05/17 05:40 03/05/17 05:40 Labs: Short CBC 03/05/17 Range/Units 05:40 WBC 5.7 (4.3-11.1) K/mcL Hgb 11.7 (11.5-15.4) g/dL Hct 36.9 (35.3-44.9) % Plt Count 185 (140-400) K/mcL Neutrophils # 4.0 (1.6-8.9) K/mcL BMP 03/05/17 05:40 Sodium 144 Potassium 3.5 Chloride 104 Carbon Dioxide 30 H BUN 15 Creatinine 0.67 Glucose 104 H Calcium 8.8 Cardiac Enzymes 03/04/17 03/05/17 Range/Units 23:28 05:40 Troponin I 0.01 0.03 (0-0.03) ng/mL
[2017-03-05] MEDS: Lisinopril 20 MG TABLET PO SCH (11:33)
[2017-03-05] MEDS: Bumetanide 1 MG/4 ML VIAL IVP SCH ×2 (11:33→17:29)
[2017-03-05] MEDS: Acetaminophen 325 MG TABLET PO PRN ×2 (11:42→18:25)
[2017-03-05] MEDS: traZODone 50 MG TABLET PO PRN (20:49)
[2017-03-06 07:07] LABS: BUN/Creatinine Ratio 24 (6-26); Blood Urea Nitrogen 20 mg/dL (7-20); Calcium 8.8 mg/dL (8.6-10.8); Carbon Dioxide 33 mEq/L (19-29); Chloride 99 mEq/L (98-109); Glucose 116 mg/dL (70-99); Osmolality,Calculated 302 (280-300); Potassium 3.4 mEq/L (3.5-4.5); Sodium 144 mEq/L (136-145); eGFR For African Americans > 60 (> 60); eGFR For Non-African Americans > 60 (> 60)
[2017-03-06] MEDS ORDERED: Ondansetron 4 MG/2 ML VIAL IVP PRN (10:06)
[2017-03-06] MEDS: Bumetanide 1 MG/4 ML VIAL IVP SCH (10:16)
[2017-03-06] MEDS: Lisinopril 20 MG TABLET PO SCH (10:17)
[2017-03-06] MEDS: hydroCHLOROthiazide 25 MG TABLET PO SCH (10:17)
[2017-03-06] MEDS: Isosorbide MONOnitrate (24 HR) 60 MG TAB.ER.24H PO SCH (10:18)
[2017-03-06] MEDS: Metoprolol XL (24 HR) Succ 50 MG TAB.ER.24H PO SCH ×2 (11:43→12:40)
--- NOTE | 2017-03-06 11:58 | Internal Med Progress Note ---
Date of Encounter: 03/06/17 Time of Encounter: 11:45 - Assessment and plan (1) Congestive heart failure Current Visit: Yes Status: Chronic Assessment and plan: March 06. Will change Bumex to oral dose. Toprol was held today because of bradycardia. Check labs in a.m. Qualifiers: Congestive heart failure type: diastolic Congestive heart failure chronicity: chronic Qualified Code(s): I50.32 - Chronic diastolic (congestive ) heart failure (2) Hypertension Current Visit: No Status: Chronic Assessment and plan: March 06. Blood pressure overall improved. Will hold Toprol today. Recheck labs in a.m. Qualifiers: Hypertension type: essential hypertension Qualified Code(s): I10 - Essential (primary) hypertension - Subjective Interval history: March 06. She has had nausea without vomiting. She states her breathing is improved. - Constitutional Vitals: Temp Pulse Resp BP Pulse Ox 98.4 F 53 18 127/65 97 03/06/17 10:15 03/06/17 10:15 03/06/17 10:15 03/06/17 10:15 03/06/17 10:15 Exam: She is sitting on the side of bed eating lunch. Her affect is overall cheerful. Her extremities show no pitting edema today. I reviewed her medications and lab results. Internal Medicine: Result - Labs CBC & Chem 7: 03/05/17 05:40 03/06/17 06:10 Labs: BMP 03/06/17 06:10 Sodium 144 Potassium 3.4 L Chloride 99 Carbon Dioxide 33 H BUN 20 Creatinine 0.82 Glucose 116 H Calcium 8.8 - ABG Interpretation ABG results: PT/INR, D-dimer PT 11.3 Seconds (9.4-12.1) 03/04/17 18:06 Consult Discharge Plan - Plan
[2017-03-06] MEDS: *HR* Glimepiride 2 MG TABLET PO SCH (12:05)
[2017-03-06] MEDS: 0.45 % Sodium Chloride w/KCl 20 MEQ/1,000 ML MLS IVC SCH (12:43)
[2017-03-06] MEDS: Acetaminophen 325 MG TABLET PO PRN (13:00)
[2017-03-06] MEDS: traZODone 50 MG TABLET PO PRN (20:10)
[2017-03-07 05:23] LABS: BUN/Creatinine Ratio 29 (6-26); Blood Urea Nitrogen 23 mg/dL (7-20); Calcium 9.1 mg/dL (8.6-10.8); Carbon Dioxide 34 mEq/L (19-29); Chloride 99 mEq/L (98-109); Glucose 128 mg/dL (70-99); Osmolality,Calculated 301 (280-300); Sodium 143 mEq/L (136-145); eGFR For African Americans > 60 (> 60); eGFR For Non-African Americans > 60 (> 60)
[2017-03-07] MEDS: 0.45 % Sodium Chloride w/KCl 20 MEQ/1,000 ML MLS IVC SCH (06:30)
[2017-03-07 07:21] VITALS: BP 110/59
[2017-03-07] MEDS: Isosorbide MONOnitrate (24 HR) 60 MG TAB.ER.24H PO SCH (08:18)
[2017-03-07] MEDS: Metoprolol XL (24 HR) Succ 50 MG TAB.ER.24H PO SCH (08:18)
[2017-03-07] MEDS: Acetaminophen 325 MG TABLET PO PRN (08:18)
[2017-03-07] MEDS: Lisinopril 20 MG TABLET PO SCH (08:19)
[2017-03-07] MEDS: *HR* Glimepiride 2 MG TABLET PO SCH (08:19)
[2017-03-07] MEDS: hydroCHLOROthiazide 25 MG TABLET PO SCH (08:19)
[2017-03-07] MEDS ORDERED: Bumetanide 1 MG TABLET PO SCH (09:00)
--- NOTE | 2017-03-07 09:47 | Discharge Summary ---
Date of Encounter: 03/07/17 Time of Encounter: 09:35 - Discharge Diagnosis (1) Congestive heart failure Priority: Primary Status: Chronic Qualifiers: Congestive heart failure type: diastolic Congestive heart failure chronicity: chronic Qualified Code(s): I50.32 - Chronic diastolic (congestive ) heart failure (2) Hypertension Priority: Secondary Status: Chronic Qualifiers: Hypertension type: essential hypertension Qualified Code(s): I10 - Essential (primary) hypertension - Discharge Medications Prescriptions: Bumetanide [Bumex] 1 mg PO DAILY #30 tablet Isosorbide MONOnitrate (24 HR) [Imdur] 60 mg PO DAILY #30 tab.er.24h Lisinopril [Zestril] 20 mg PO DAILY #30 tablet Metoprolol Succinate 100 mg PO DAILY #30 tab.er.24h Home Medications: Atorvastatin [Lipitor] 20 mg PO HS 02/27/17 [History] Glimepiride [Amaryl] 2 mg PO 0800 02/27/17 [History] Potassium Chloride [Klor-Con 10] 10 meq PO DAILY 02/27/17 [History] hydroCHLOROthiazide [Hydrochlorothiazide] 12.5 mg PO DAILY 03/04/17 [History] Bumetanide [Bumex] 1 mg PO DAILY #30 tablet 03/07/17 [Rx] Isosorbide MONOnitrate (24 HR) [Imdur] 60 mg PO DAILY #30 tab.er.24h 03/07/17 [ Rx] Lisinopril [Zestril] 20 mg PO DAILY #30 tablet 03/07/17 [Rx] Metoprolol Succinate 100 mg PO DAILY #30 tab.er.24h 03/07/17 [Rx] Allergies/Adverse Reactions: 3 Allergy/AdvReac Type Severity Reaction Status Date / Time aspirin AdvReac Nausea Verified 03/05/17 05:59 Date of admission: 03/04/17 20:22 Primary care physician: Bernadette Rojas CNP - Patient Status Disposition: Home, Self-Care Condition: Good Functional capacity at discharge: independent ambulation Overall status at discharge: patient is progressing back to baseline - Discharge Instructions Follow Up With: Bernadette Rojas CNP [Primary Care Provider] - 1 week Forms: ED Satisfaction Letter - Diet and Activity Activity: resume usual activities as tolerated, wear oxygen at all times Diet: advance to your usual diet Hospital course: Ms. Marquez is a 71 year old female who came to emergency room stating she had increasing dyspnea over the past 3 weeks. She reports no significant angina type chest pains associated. She came to emergency room and was evaluated and felt to have exacerbation of heart failure. She was admitted to [facility] floor for ongoing care needs. Initial orders were written by the emergency room physician. I saw her on March 05 and performed history and physical. She was given IV Bumex and isosorbide dose was increased. Lisinopril was restarted. Toprol was held because of bradycardia. She had clinical improvement with BN peptide decreasing to 170 on March 06. Her dyspnea resolved. On March 07 she was stable for discharge home. She will follow with her PCP Bernadette Rojas CNP within 1 week. - Time Spent with Patient Total time spent providing and/or coordinating discharge services: - Constitutional Vitals: Temp Pulse Resp BP Pulse Ox 98.4 F 69 18 110/59 98 03/07/17 07:13 03/07/17 07:13 03/07/17 07:13 03/07/17 07:13 03/07/17 07:13
[2017-03-07] MEDS ORDERED: FLUARIX QUAD 2017-18 36MOS UP/PF 0.5 ML SYRINGE IM ONE (10:30)
== END 2017-03-07 11:20 | disposition home or self-care (01) ==
LOC: INPPIK 17:50 → EMEROOPIK 17:50 → INPPIK 20:22
PROVIDERS: ADMIT Internal Medicine; ATTEND Internal Medicine

== ENCOUNTER 2017-11-27 15:56 | Observation (INO) ==
--- NOTE | 2017-11-27 16:15 | Emergency Department Note ---
Disposition Clinical Impression: Congestive heart failure Qualifiers: Heart failure type: unspecified Heart failure chronicity: acute on chronic Qualified Code(s): I50.9 - Heart failure, unspecified Disposition: Home, Self-Care Condition: Good SOB HPI - General Chief Complaint: ED Shortness of Breath/Dyspnea Stated Complaint: Short of breath for several days. Time Seen by Provider: 11/27/17 16:12 Source: patient Mode of arrival: EMS Limitations: age Nursing Notes Reviewed: Yes Vital Signs Reviewed: Yes - History of Present Illness Patient presents to the ED via EMS complaining of worsening of shortness of breath for several days. She has also had some intermittent chest tightness and aching discomfort in her chest. Denies any palpitations or lightheadedness. She wears home oxygen at 2 L/m which she has done since last fall. She reports a chronic dry intermittent cough but no sore throat or rhinorrhea. She does report occasional sneezing but has seasonal allergies. Denies any fever or chills. She does report some recent worsening of her lower extremity swelling and states she has gained 15 or 20 pounds over the past several months. She denies any nausea, vomiting, diarrhea or constipation. Nothing seems to make her symptoms better or worse. She does have a history of CHF as well as asthma. She is not a smoker. She reports taking all of her medications as prescribed. States her PCP did increase her Lasix from 20 mg to 40 mg last month due to her CHF. - Related Data Home Medications Medication Instructions Recorded Confirmed Atorvastatin [Lipitor] 20 mg PO HS 02/27/17 11/27/17 Glimepiride [Amaryl] 2 mg PO 0800 02/27/17 11/27/17 Potassium Chloride [Klor-Con 10] 10 meq PO DAILY 02/27/17 11/27/17 hydroCHLOROthiazide 12.5 mg PO DAILY 03/04/17 11/27/17 [Hydrochlorothiazide] Aspirin [Lo-Dose Aspirin EC] 81 mg PO 11/27/17 Calcium Carbonate/Vitamin D3 2,000 mg PO DAILY 11/27/17 11/27/17 [Calcium 600 with Vit D Chew Tb] Furosemide [Lasix] 40 mg PO DAILY 11/27/17 11/27/17 Previous Rx's Medication Instructions Recorded Bumetanide [Bumex] 1 mg PO DAILY #30 tablet 03/07/17 Isosorbide MONOnitrate (24 HR) 60 mg PO DAILY #30 tab.er.24h 03/07/17 [Imdur] Lisinopril [Zestril] 20 mg PO DAILY #30 tablet 03/07/17 Metoprolol Succinate 100 mg PO DAILY #30 tab.er.24h 03/07/17 Bumetanide [Bumex] 1 mg PO DAILY #10 tablet 04/28/17 Allergies Allergy/AdvReac Type Severity Reaction Status Date / Time aspirin AdvReac Nausea Verified 09/25/17 22:16 Constitutional: Denies: fever, chills, weakness, weight change Eyes: Denies: eye pain, eye discharge, vision change ENT ED: Denies: ear pain, throat pain, dental pain, hearing loss, epistaxis, congestion, dysphagia Cardiovascular: Reports: as per HPI. Denies: chest pain, palpitations, dyspnea on exertion, edema, syncope Respiratory: Reports: as per HPI, cough, dyspnea Gastrointestinal: Denies: abdominal pain, nausea, vomiting, diarrhea, constipation, hematemesis, melena, hematochezia Genitourinary: Denies: dysuria, frequency, hematuria, discharge Musculoskeletal: Denies: back pain, neck pain, arthralgia, myalgia Integumentary: Denies: rash, abrasion, lesions Neurological: Denies: headache, weakness, numbness, paresthesias, confusion, abnormal gait, vertigo Psychiatric: Denies: anxiety, depression, suicidal thoughts, homicidal thoughts , auditory hallucinations, visual hallucinations Endocrine: Denies: fatigue Hematological/Lymphatic: Denies: easy bleeding, easy bruising Allergic/Immunologic: Denies: facial swelling, urticaria Past Medical History - Past Medical History Medical history: Reports: arthritis, asthma, CHF, diabetes, hyperlipidemia, hypertension Surgical history: Reports: appendectomy, breast surgery, cholecystectomy, hysterectomy, other Psychiatric history: Reports: no psych history STAND IN history: Reports: bilateral tubal ligation - Social History Smoking Status: Never smoker Smokeless Tobacco Status: No Alcohol use: Reports: none Drug use: Reports: none Physical Exam - General Limitations: age General appearance: alert, anxious - Head Head exam: atraumatic, normocephalic, normal inspection - Eye Eye exam: Present: normal appearance, PERRL, EOMI - ENT ENT exam: normal exam, normal oropharynx, mucous membranes moist - Neck Neck exam: Present: normal inspection, full ROM, trachea midline - Chest Chest inspection: Present: normal inspection, symmetric chest wall rise - Respiratory Respiratory exam: Present: normal lung sounds bilaterally - Cardiovascular Cardiovascular exam: Present: regular rate, normal rhythm, normal heart sounds - Abdominal Exam Abdominal exam: Present: soft, Non-Tender. Absent: tenderness, distention, guarding, rebound, rigidity - Extremities Exam Extremities exam: Present: normal inspection, full ROM, normal capillary refill , pedal edema (1-2+ bilaterally). Absent: tenderness - Back Exam Back exam: Present: normal inspection, full ROM. Absent: tenderness - Neurological Exam Neurological exam: Present: alert, oriented X3 - Psychiatric Psychiatric exam: Present: normal affect, normal mood - Skin Skin exam: Present: warm, dry, intact, normal color Course Course Narrative: Patient presents to the ED with increasing shortness of breath, some chest tightness and leg swelling concerning for possible worsening CHF versus less likely primary pulmonary pathology such as COPD or pneumonia. She has no wheezing or respiratory distress on exam. Will obtain EKG, chest x-ray and lab work. - Reevaluation(s) Reevaluation #1: EKG showed no acute abnormalities. Laboratory studies were notable for a BNP of 265. Chest x-ray showed vascular congestion with developing edema. Patient is experiencing a CHF exacerbation. Given that she relies on oxygen and has significant swelling I feel that she would benefit from admission and IV diuresis. Discussed all test results and plan of care and patient is in agreement. I spoke to the hospitalist on-call, Dr. Romano who has agreed to admit the patient. Vital Signs O2 Sat by Pulse Oximetry 93 11/27/17 15:57 Temperature 98.1 F 11/28/17 04:09 Pulse Rate 76 11/28/17 04:09 Respiratory Rate 18 11/28/17 04:09 Blood Pressure 151/74 11/28/17 04:09 O2 Sat by Pulse Oximetry 95 11/28/17 04:09 Oxygen Delivery Oxygen Delivery Nasal Cannula Shortness of Breath/Dyspnea - Differential Diagnosis Likely: acute exacerbation of chronic obstructive airways disease, congestive heart failure, pneumonia. Unlikely: pulmonary embolism, arrhythmia - Medical Records Medical records reviewed: Yes I reviewed the patient's medical records. - Lab Data Lab results reviewed: Yes I reviewed the patient's lab results. Result diagrams: 11/27/17 16:52 11/27/17 16:52 Lab Results 11/27/17 11/27/17 11/27/17 Range/Units 16:52 16:52 16:52 WBC 6.7 (4.3-11.1) K/mcL RBC 4.09 (3.82-4.97) M/mcL Hgb 11.0 L (11.5-15.4) g/dL Hct 36.7 (35.3-44.9) % MCV 89.7 (83.0-100.0) fL MCH 26.9 L (28.0-33.3) pg MCHC 30.0 L (31.6-35.5) g/dL RDW 14.1 (11.5-14.5) % Plt Count 193 (140-400) K/mcL MPV 9.9 (9.4-12.4) fL Immature Gran % 0.4 (0-4) % Seg Neutrophils % 77.8 % Lymphocytes % 15.2 % Monocytes % 5.2 % Eosinophils % 1.3 % Basophils % 0.1 % Neutrophils # 5.2 (1.6-8.9) K/mcL Lymphocytes # 1.0 (0.6-4.6) K/mcL Monocytes # 0.4 (0.0-1.3) K/mcL Eosinophils # 0.1 (0.0-0.6) K/mcL Basophils # 0.0 (0.0-0.2) K/mcL Sodium 140 (136-145) mEq/L Potassium 3.4 L (3.5-5.1) mEq/L Chloride 96 L (98-107) mEq/L Carbon Dioxide 39 H (23-29) mEq/L BUN 15 (8-23) mg/dL Creatinine 0.67 (0.60-1.20) mg/dL Est GFR ( Amer) > 60 (> 60) Est GFR (Non-Af Amer) > 60 (> 60) BUN/Creatinine Ratio 22 (6-26) Glucose 129 H (70-105) mg/dL Calculated Osmolality 293 (280-300) Lactic Acid 1.2 (0.5-2.2) mmol/L Calcium 9.2 (8.6-10.3) mg/dL Total Bilirubin 0.5 (0.3-1.0) mg/dL Direct Bilirubin 0.1 (0.0-0.2) mg/dL Indirect Bilirubin 0.4 (0.0-1.2) mg/dL AST 10 L (13-39) Units/L ALT 11 (7-52) Units/L Alkaline Phosphatase 95 (34-104) Units/L Troponin I < 0.03 (< 0.04) ng/mL B-Natriuretic Peptide (Less than 100) pg/mL Serum Total Protein 7.3 (6.4-8.9) g/dL Albumin 3.9 (3.5-5.7) g/dL Globulin 3.4 (2.4-3.5) g/dL Albumin/Globulin Ratio 1.1 (1.1-2.2) 11/27/17 Range/Units 16:52 WBC (4.3-11.1) K/mcL RBC (3.82-4.97) M/mcL Hgb (11.5-15.4) g/dL Hct (35.3-44.9) % MCV (83.0-100.0) fL MCH (28.0-33.3) pg MCHC (31.6-35.5) g/dL RDW (11.5-14.5) % Plt Count (140-400) K/mcL MPV (9.4-12.4) fL Immature Gran % (0-4) % Seg Neutrophils % % Lymphocytes % % Monocytes % % Eosinophils % % Basophils % % Neutrophils # (1.6-8.9) K/mcL Lymphocytes # (0.6-4.6) K/mcL Monocytes # (0.0-1.3) K/mcL Eosinophils # (0.0-0.6) K/mcL Basophils # (0.0-0.2) K/mcL Sodium (136-145) mEq/L Potassium (3.5-5.1) mEq/L Chloride (98-107) mEq/L Carbon Dioxide (23-29) mEq/L BUN (8-23) mg/dL Creatinine (0.60-1.20) mg/dL Est GFR ( Amer) (> 60) Est GFR (Non-Af Amer) (> 60) BUN/Creatinine Ratio (6-26) Glucose (70-105) mg/dL Calculated Osmolality (280-300) Lactic Acid (0.5-2.2) mmol/L Calcium (8.6-10.3) mg/dL Total Bilirubin (0.3-1.0) mg/dL Direct Bilirubin (0.0-0.2) mg/dL Indirect Bilirubin (0.0-1.2) mg/dL AST (13-39) Units/L ALT (7-52) Units/L Alkaline Phosphatase (34-104) Units/L Troponin I (< 0.04) ng/mL B-Natriuretic Peptide 265 H (Less than 100) pg/mL Serum Total Protein (6.4-8.9) g/dL Albumin (3.5-5.7) g/dL Globulin (2.4-3.5) g/dL Albumin/Globulin Ratio (1.1-2.2) - Radiology Data Radiology results reviewed: Yes I reviewed the patient's radiology results. ITS Impressions Chest X-Ray 11/27/17 16:25 IMPRESSION: Cardiac silhouette enlargement and vascular congestion is again demonstrated. Interstitial opacities appear more prominent in the interval and developing edema should be considered in the appropriate clinical setting. D/ / Myles Peguero / Myles Peguero Interpreting Provider: Myles Peguero - EKG Data EKG attestation: Yes I reviewed and interpreted this EKG. EKG shows normal: Reports: sinus rhythm Rate: Reports: normal Rhythm: Reports: NSR [place]/QRS: Reports: normal Interpretation: Reports: no acute changes, normal EKG
[2017-11-27 17:04] LABS: Basophils % 0.1 %; Eosinophils # 0.1 K/mcL (0.0-0.6); Eosinophils % 1.3 %; Hematocrit 36.7 % (35.3-44.9); Immature Granulocytes % 0.4 % (0-4); Lymphocytes % 15.2 %; Mean Corpuscular Hemoglobin 26.9 pg (28.0-33.3); Mean Corpuscular Volume 89.7 fL (83.0-100.0); Mean Platelet Volume 9.9 fL (9.4-12.4); Monocytes # 0.4 K/mcL (0.0-1.3); Monocytes % 5.2 %; Neutrophils # 5.2 K/mcL (1.6-8.9); Platelet Count 193 K/mcL (140-400); Red Blood Count 4.09 M/mcL (3.82-4.97); Red Cell Distribution Width 14.1 % (11.5-14.5); Segmented Neutrophils % 77.8 %
[2017-11-27 17:23] LABS: Alanine Aminotransferase 11 Units/L (7-52); Albumin 3.9 g/dL (3.5-5.7); Albumin/Globulin Ratio 1.1 (1.1-2.2); Alkaline Phosphatase 95 Units/L (34-104); Aspartate Amino Transferase 10 Units/L (13-39); BUN/Creatinine Ratio 22 (6-26); Bilirubin,Direct 0.1 mg/dL (0.0-0.2); Bilirubin,Indirect 0.4 mg/dL (0.0-1.2); Bilirubin,Total 0.5 mg/dL (0.3-1.0); Blood Urea Nitrogen 15 mg/dL (8-23); Calcium 9.2 mg/dL (8.6-10.3); Carbon Dioxide 39 mEq/L (23-29); Chloride 96 mEq/L (98-107); Globulin 3.4 g/dL (2.4-3.5); Glucose 129 mg/dL (70-105); Osmolality,Calculated 293 (280-300); Potassium 3.4 mEq/L (3.5-5.1); Sodium 140 mEq/L (136-145); Total Protein 7.3 g/dL (6.4-8.9); eGFR For African Americans > 60 (> 60); eGFR For Non-African Americans > 60 (> 60)
[2017-11-27 17:28] LABS: Troponin I < 0.03 ng/mL (< 0.04)
[2017-11-27] MEDS ORDERED: Ondansetron 4 MG/2 ML VIAL IVP ONE (19:02)
[2017-11-27] MEDS ORDERED: Furosemide 40 MG/4 ML VIAL IVP ONE (19:14)
[2017-11-27] MEDS ORDERED: *HR* Labetalol 100 MG/20 ML MDV IVP ONE (19:15)
[2017-11-27] MEDS ORDERED: Naloxone 0.4 MG/ML INJ IVP PRN ×2 (19:22→20:46)
[2017-11-27] MEDS ORDERED: Dextrose Gel 15 GM/37.5 ML TUBE PO PRN ×4 (19:26→20:46)
[2017-11-27] MEDS ORDERED: D5% in Water 1,000 ML IVC PRN ×2 (19:26→20:46)
[2017-11-27] MEDS ORDERED: *HR* Dextrose 50 % in Water (Syg) 50 ML SYRINGE IVP PRN ×2 (19:26→20:46)
[2017-11-27] MEDS ORDERED: *HR* Labetalol 100 MG/20 ML MDV IVP STA (20:03)
[2017-11-27] MEDS ORDERED: Insulin LISPRO 300 UNITS/3 ML VIAL SQ SCH (21:00)
[2017-11-27 21:45] LABS: Bilirubin,Urine Negative (Negative); Blood,Urine Small (Negative); Clarity,Urine Clear (Clear); Glucose,Urine (UA) Normal (Normal); Ketones,Urine Negative (Negative); Leukocyte Esterase,Urine Negative (Negative); Nitrite,Urine Negative (Negative); Protein,Urine Negative (Neg-Trace); Urobilinogen,Urine Normal (Normal)
[2017-11-27 21:47] LABS: Color,Urine Light Yellow (Yellow)
[2017-11-27 22:00] LABS: Bacteria,Urine Few per hpf (None-Few); Hyaline Casts,Urine Few per lpf (None-Few); RBC,Urine 0-3 per hpf (0-3); Squamous Epithelial Cell,Urine Moderate per lpf (None-Few); WBC,Urine 0-3 per hpf (0-3)
[2017-11-27] MEDS: Insulin LISPRO 300 UNITS/3 ML VIAL SQ SCH (22:18)
--- NOTE | 2017-11-28 06:41 | Electrocardiograph Report ---
[address] [address] Test Date: 2017-11-27 Pat Name: Anuja Marquez Department: [id number] Room: [facility] Gender: F [employer] Counselor: [id number] : 1945 Requested By: Nida Fairchild Order Number: [id number] Reading MD: Jaime Bains Measurements Intervals [place] Rate: 70 P: 79 OK: 174 QRS: 63 QRSD: 101 T: 55 QT: 384 QTc: 406 Interpretive Statements SINUS RHYTHM Electronically Signed On 11-28-2017 6:40:10 EDT by Jaime Bains
[2017-11-28] MEDS ORDERED: Insulin LISPRO 300 UNITS/3 ML VIAL SQ SCH (07:30)
[2017-11-28] MEDS: Insulin LISPRO 300 UNITS/3 ML VIAL SQ SCH ×4 (07:33→20:03)
[2017-11-28] MEDS: Lisinopril 20 MG TABLET PO SCH (08:00)
[2017-11-28] MEDS: Isosorbide MONOnitrate (24 HR) 60 MG TAB.ER.24H PO SCH (08:00)
[2017-11-28] MEDS: *HR* Glimepiride 2 MG TABLET PO SCH (08:00)
[2017-11-28] MEDS: hydroCHLOROthiazide 25 MG TABLET PO SCH (08:01)
[2017-11-28] MEDS: Bumetanide 1 MG TABLET PO SCH (08:01)
[2017-11-28] MEDS: Cholecalciferol (D-3) 1,000 UNIT TABLET PO SCH (08:01)
[2017-11-28] MEDS: Metoprolol XL (24 HR) Succ 50 MG TAB.ER.24H PO SCH (08:02)
--- NOTE | 2017-11-28 12:09 | Internal Med History&Physical ---
Date of Encounter: 11/28/17 Time of Encounter: 11:35 Assessment and Plan (1) Congestive heart failure Current visit: Yes Status: Chronic We will continue with Toprol Zestril and HCTZ. We will give Bumex and isosorbide and monitor. Qualifiers: Heart failure type: diastolic Heart failure chronicity: acute on chronic Qualified Code(s): I50.33 - Acute on chronic diastolic (congestive) heart failure (2) DM type 2 (diabetes mellitus, type 2) Current visit: Yes Status: Acute We will check hemoglobin A1c in a.m. Continue Amaryl and Accu-Cheks with SSI Qualifiers: Diabetes mellitus prison insulin use: without prison use Diabetes mellitus complication status: without complication Qualified Code(s): E11.9 - Type 2 diabetes mellitus without complications (3) Hypokalemia Current visit: Yes Status: Acute We will give supplemental potassium (4) Anemia Current visit: Yes Status: Acute Will order anemia testing in a.m. Qualifiers: Anemia type: unspecified type Qualified Code(s): D64.9 - Anemia, unspecified (5) Hypertension Current visit: No Status: Chronic Will continue Toprol, Zestril, and HCTZ. Qualifiers: Hypertension type: essential hypertension Qualified Code(s): I10 - Essential (primary) hypertension Internal Medicine - H&P: HPI Chief complaint: Dyspnea Admitted From: Emergency Dept Plans for Post Hospital Care: Home History of present illness: Ms. Marquez is a 72 year old female who came to emergency room stating she had increasing dyspnea and worsening edema for approximately one week. She reports Lasix dose was increased from 20 mg daily up to 40 mg daily approximately 5 days ago without significant improvement. She denies cough or significant chest pain. She was evaluated in emergency room found to have exacerbation of heart failure. She was admitted to [facility] floor for ongoing care needs. She had an echocardiogram January 2017 showing LVEF of 60% with diastolic dysfunction. She was placed on Bumex and isosorbide. These were not continued by her PCP. She also uses lisinopril with Lasix. She has history of hypertension but no NH DVT or pulmonary embolus. She reports a stress test done approximately March 2010 had unremarkable results. Past Med Surg Social Fam HX - Past Medical History Medical history: arthritis, asthma, CHF, diabetes, hyperlipidemia, hypertension Psychiatric history: no psych history - Past Surgical History Surgical History: appendectomy, breast surgery, cholecystectomy, hysterectomy, other Additional surgical history: meningioma removed approx. 2009 - Social History Smoking Status: Never smoker Smokeless Tobacco Status: No Alcohol use: none Drug use: none Internal Medicine - H&P: Meds Atorvastatin [Lipitor] 20 mg PO HS 02/27/17 [History] Glimepiride [Amaryl] 2 mg PO 0800 02/27/17 [History] Potassium Chloride [Klor-Con 10] 10 meq PO DAILY 02/27/17 [History] hydroCHLOROthiazide [Hydrochlorothiazide] 12.5 mg PO DAILY 03/04/17 [History] Bumetanide [Bumex] 1 mg PO DAILY #30 tablet 03/07/17 [Rx] Isosorbide MONOnitrate (24 HR) [Imdur] 60 mg PO DAILY #30 tab.er.24h 03/07/17 [ Rx] Lisinopril [Zestril] 20 mg PO DAILY #30 tablet 03/07/17 [Rx] Metoprolol Succinate 100 mg PO DAILY #30 tab.er.24h 03/07/17 [Rx] Bumetanide [Bumex] 1 mg PO DAILY #10 tablet 04/28/17 [Rx] Aspirin [Lo-Dose Aspirin EC] 81 mg PO 11/27/17 [History] Calcium Carbonate/Vitamin D3 [Calcium 600 with Vit D Chew Tb] 2,000 mg PO DAILY 11/27/17 [History] Furosemide [Lasix] 40 mg PO DAILY 11/27/17 [History] 3 Allergy/AdvReac Type Severity Reaction Status Date / Time aspirin AdvReac Nausea Verified 09/25/17 22:16 All Systems PM: A 10-system review of systems was performed and is negative for pertinent findings except as documented above in the HPI. Review of systems: Review of systems from her February 2017 [facility] hospitalization were reviewed and revised as below. Gen.: Her weight has increased from 95.254 kg February 2013 to 104.326 kg on admission now. Cardiovascular: As per history of present illness Respiratory: She smoked during her teenage years and has a diagnosis of asthma. She denies other chronic lung disease and does not use home oxygen and has not been tested for [place]. GI: She had remote cholecystectomy and denies disorders of her liver or exocrine pancreas. She denies EGD or colonoscopy. : She denies hematuria dysuria kidney stones or chronic kidney disease. She has had hysterectomy. Endocrine: She was diagnosed with DM 2 in 2017 after several years of "borderline diabetes". She has hyperlipidemia but no known thyroid disease. Neurologic: She had meningioma resection April 2010 and has another meningioma being treated nonoperatively at present. She denies large distribution strokes or seizures. Hematology/oncology: She denies blood disorders or cancers. She had anemia on labs in emergency room. Psychiatric: She has depression but does not take medication. She denies anxiety or other mental health issues Musk skeletal: She has DJD but denies gout or osteoporosis. - Constitutional Vitals: Temp Pulse Resp BP Pulse Ox 97.2 F L 68 16 167/76 96 11/28/17 06:00 11/28/17 07:59 11/28/17 06:00 11/28/17 07:59 11/28/17 06:00 Exam: Gen.: She is a well-developed overweight female resting comfortably in bed who appears in no severe distress at present time HEENT: Head is atraumatic and normocephalic. Eyes: EOMI. There is no scleral icterus. Mouth: Mucosa is moist. Neck: Supple and nontender. There is no thyromegaly or adenopathy noted. Heart: Regular without murmurs gallops or ectopics Lungs: No wheezes or crackles are heard. Abdomen: Soft and nontender. No masses or guarding are noted. Extremities: There is no cyanosis edema or clubbing noted. Dorsalis pedis and posttibial pulses are trace to 1+ palpable bilaterally. Neurologic: Mental status: She is talkative and a good historian. Cranial nerves: Smile is symmetric. Forehead wrinkles bilaterally. Tongue protrudes midline. EOMI. Motor: There is no pronator drift. Cerebellar: Finger to nose is intact bilaterally. Skin: Warm and dry Internal Med - H&P Results - Labs CBC & Chem 7: 11/27/17 16:52 11/27/17 16:52 Labs: Urine 11/27/17 Range/Units 21:35 Urine Color Light Yellow (Yellow) Urine Clarity Clear (Clear) Urine pH 5.0 (5.0-8.0) pH Units Ur Specific [place] 1.010 (1.010-1.025) Urine Protein Negative (Neg-Trace) mg/dL Urine Glucose (UA) Normal (Normal) mg/dL - VTE Reasons for not Prescribing Prophylaxis: Treatment not Indicated - Low risk for VTE
[2017-11-28] MEDS ORDERED: Ondansetron ODT 4 MG TAB.RAPDIS SL PRN (12:31)
[2017-11-28] MEDS ORDERED: MOM Conc 10 ML UD.LIQ PO PRN (12:32)
[2017-11-29 06:20] LABS: Basophils % 0.2 %; Eosinophils # 0.1 K/mcL (0.0-0.6); Eosinophils % 1.2 %; Hematocrit 37.7 % (35.3-44.9); Hemoglobin 10.9 g/dL (11.5-15.4); Immature Granulocytes % 0.3 % (0-4); Lymphocytes # 0.9 K/mcL (0.6-4.6); Lymphocytes % 14.6 %; Mean Corpuscular HGB Conc 28.9 g/dL (31.6-35.5); Mean Corpuscular Hemoglobin 26.6 pg (28.0-33.3); Mean Platelet Volume 9.9 fL (9.4-12.4); Monocytes # 0.4 K/mcL (0.0-1.3); Monocytes % 6.3 %; Neutrophils # 4.7 K/mcL (1.6-8.9); Platelet Count 180 K/mcL (140-400); Red Cell Distribution Width 14.3 % (11.5-14.5); Segmented Neutrophils % 77.4 %
[2017-11-29 07:07] LABS: BUN/Creatinine Ratio 26 (6-26); Blood Urea Nitrogen 18 mg/dL (8-23); Calcium 9.1 mg/dL (8.6-10.3); Carbon Dioxide > 45 mEq/L (23-29); Chloride 94 mEq/L (98-107); Glucose 105 mg/dL (70-105); Osmolality,Calculated 292 (280-300); Potassium 3.5 mEq/L (3.5-5.1); Sodium 140 mEq/L (136-145); eGFR For African Americans > 60 (> 60); eGFR For Non-African Americans > 60 (> 60)
[2017-11-29 07:28] LABS: Platelet Estimate Normal (Normal); Stomatocytes 1+ (Not Present)
[2017-11-29] MEDS: Insulin LISPRO 300 UNITS/3 ML VIAL SQ SCH ×4 (07:47→20:49)
[2017-11-29] MEDS: hydroCHLOROthiazide 25 MG TABLET PO SCH (08:05)
[2017-11-29] MEDS: *HR* Glimepiride 2 MG TABLET PO SCH (08:07)
[2017-11-29] MEDS: Isosorbide MONOnitrate (24 HR) 60 MG TAB.ER.24H PO SCH (08:07)
[2017-11-29] MEDS: Metoprolol XL (24 HR) Succ 50 MG TAB.ER.24H PO SCH (08:07)
[2017-11-29] MEDS: Lisinopril 20 MG TABLET PO SCH (08:07)
[2017-11-29] MEDS: Bumetanide 1 MG TABLET PO SCH (08:08)
[2017-11-29] MEDS: Cholecalciferol (D-3) 1,000 UNIT TABLET PO SCH (08:08)
[2017-11-29 09:16] LABS: % Iron Saturation 13 % (15-50); Iron 51 mcg/dL (50-170); Transferrin 284 mg/dL (203-362)
[2017-11-29 09:27] LABS: Ferritin 33 ng/mL (10-120)
[2017-11-29 09:34] LABS: Folate 10.2 ng/mL (3.0-16.0)
--- NOTE | 2017-11-29 10:26 | Internal Med Progress Note ---
Date of Encounter: 11/29/17 Time of Encounter: 10:15 - Assessment and plan (1) Congestive heart failure Current Visit: Yes Status: Chronic Assessment and plan: November 29. BN peptide improved to 160. Continue present regimen. Qualifiers: Heart failure type: diastolic Heart failure chronicity: acute on chronic Qualified Code(s): I50.33 - Acute on chronic diastolic (congestive) heart failure (2) DM type 2 (diabetes mellitus, type 2) Current Visit: Yes Status: Acute Assessment and plan: November 29. Accu-Cheks are stable. We will check hemoglobin A1c. Qualifiers: Diabetes mellitus senior living insulin use: without truck terminal manager use Diabetes mellitus complication status: without complication Qualified Code(s): E11.9 - Type 2 diabetes mellitus without complications (3) Hypokalemia Current Visit: Yes Status: Acute Assessment and plan: November 29. Potassium improved to 3.5. Continue present regimen. (4) Anemia Current Visit: Yes Status: Acute Assessment and plan: November 29. Anemia testing showed iron 51, transferrin saturation 13%, transferrin 284, ferritin 33, B12 222, and folate 10.2. Will give B12 injection and start oral ferrous sulfate with vitamin C. Qualifiers: Anemia type: unspecified type Qualified Code(s): D64.9 - Anemia, unspecified (5) Hypertension Current Visit: No Status: Chronic Assessment and plan: November 29. Continue Toprol Zestril and HCTZ. Qualifiers: Hypertension type: essential hypertension Qualified Code(s): I10 - Essential (primary) hypertension - Subjective Interval history: November 29. She states she does not feel well. She reports she is still slightly dyspneic on exertion. - Constitutional Vitals: Temp Pulse Resp BP Pulse Ox 98.0 F 65 18 135/67 99 11/29/17 06:40 11/29/17 07:53 11/29/17 06:40 11/29/17 07:53 11/29/17 07:57 Exam: She is resting comfortably in bed and appears in no acute distress. Extremities show no edema. I reviewed her medications and lab results. Internal Medicine: Result - Labs CBC & Chem 7: 11/29/17 05:34 11/29/17 05:34 Labs: Short CBC 11/29/17 Range/Units 05:34 WBC 6.1 (4.3-11.1) K/mcL Hgb 10.9 L (11.5-15.4) g/dL Hct 37.7 (35.3-44.9) % Plt Count 180 (140-400) K/mcL Neutrophils # 4.7 (1.6-8.9) K/mcL BMP 11/29/17 05:34 Sodium 140 Potassium 3.5 Chloride 94 L Carbon Dioxide > 45 H* BUN 18 Creatinine 0.69 Glucose 105 Calcium 9.1 - VTE Reasons for not Prescribing Prophylaxis: Treatment not Indicated - Low risk for VTE Consult Discharge Plan - Plan Referrals: Bernadette Rojas, FURNACE ERECTOR [Primary Care Provider] - 1 week
[2017-11-29] MEDS ORDERED: Cyanocobalamin (B-12) 1,000 MCG/ML VIAL IM ONE (14:20)
[2017-11-29] MEDS ORDERED: Iron Sucrose Complex 400 MG in 0.9 % Sodium Chloride 250 ML IVPB ONE (14:20)
[2017-11-30 06:10] LABS: Basophils % 0.2 %; Eosinophils # 0.1 K/mcL (0.0-0.6); Eosinophils % 1.1 %; Hematocrit 34.5 % (35.3-44.9); Immature Granulocytes % 0.4 % (0-4); Lymphocytes % 18.1 %; Mean Corpuscular Hemoglobin 26.4 pg (28.0-33.3); Mean Platelet Volume 10.4 fL (9.4-12.4); Monocytes # 0.4 K/mcL (0.0-1.3); Monocytes % 6.9 %; Neutrophils # 4.1 K/mcL (1.6-8.9); Platelet Count 183 K/mcL (140-400); Red Blood Count 3.79 M/mcL (3.82-4.97); Red Cell Distribution Width 14.3 % (11.5-14.5); Segmented Neutrophils % 73.3 %
[2017-11-30 06:51] VITALS: BP 159/77
[2017-11-30 06:51] LABS: BUN/Creatinine Ratio 35 (6-26); Blood Urea Nitrogen 22 mg/dL (8-23); Calcium 8.8 mg/dL (8.6-10.3); Carbon Dioxide 44 mEq/L (23-29); Chloride 95 mEq/L (98-107); Glucose 96 mg/dL (70-105); Osmolality,Calculated 295 (280-300); Potassium 3.4 mEq/L (3.5-5.1); Sodium 141 mEq/L (136-145); eGFR For African Americans > 60 (> 60); eGFR For Non-African Americans > 60 (> 60)
[2017-11-30] MEDS: Insulin LISPRO 300 UNITS/3 ML VIAL SQ SCH (09:25)
--- NOTE | 2017-11-30 09:26 | Discharge Summary ---
Orders not resulted at time of discharge: Pending orders 11/30/17 04:35 Hgb A1C AM 0400 Date of Encounter: 11/30/17 Time of Encounter: 09:15 - Discharge Diagnosis (1) Congestive heart failure Priority: Primary Status: Chronic Qualifiers: Heart failure type: diastolic Heart failure chronicity: acute on chronic Qualified Code(s): I50.33 - Acute on chronic diastolic (congestive) heart failure (2) DM type 2 (diabetes mellitus, type 2) Priority: Secondary Status: Chronic Qualifiers: Diabetes mellitus detention insulin use: without manager terminal use Diabetes mellitus complication status: without complication Qualified Code(s): E11.9 - Type 2 diabetes mellitus without complications (3) Hypokalemia Priority: Secondary Status: Acute (4) Anemia Priority: Secondary Status: Acute Qualifiers: Anemia type: unspecified type Qualified Code(s): D64.9 - Anemia, unspecified (5) Hypertension Priority: Secondary Status: Chronic Qualifiers: Hypertension type: essential hypertension Qualified Code(s): I10 - Essential (primary) hypertension Hospital course: Ms. Marquez is a 72 year old female who came to emergency room stating she had increasing dyspnea and worsening edema for approximately one week. She reports Lasix dose was increased from 20 mg daily up to 40 mg daily approximately 5 days ago without significant improvement. She denies cough or significant chest pain. She was evaluated in emergency room found to have exacerbation of heart failure. She was admitted to [facility] floor for ongoing care needs. Initial orders were written by the emergency room physician. I saw her on November 28 and performed the history and physical. She was given Bumex and Indur was restarted. She had good clinical response with BN peptide decreasing to 140 by day of discharge. Her dyspnea lessened and on November 30 she felt stable for discharge home. She will continue Toprol, Zestril, HCTZ, and Lasix at home. Isosorbide will be continued also. Hemoglobin A1c was ordered with results pending at time of discharge. Anemia testing showed iron 51, transferrin saturation 13%, transferrin 284, ferritin 33, B12 222 (low), and folate 10.2. She was given a dose of IV iron sucrose and IM B12 injection. She will continue with oral supplements at discharge. Potassium chloride will be increased to 10 mEq twice a day for hypokalemia. On Beverley 21 she was stable for discharge home. She will follow with her PCP Bernadette Rojas CNP in 1 week. - Time Spent with Patient Total time spent providing and/or coordinating discharge services: - Discharge Medications Prescriptions: Ascorbic Acid [C-500] 500 mg PO DAILY #30 tablet Cyanocobalamin (B-12) [Vitamin B12] 1,000 mcg PO DAILY #30 tablet Ferrous Sulfate 325 mg PO DAILY #30 tablet Isosorbide MONOnitrate (24 HR) [Imdur] 60 mg PO DAILY #30 tab.er.24h Potassium Chloride [Klor-Con 10] 10 meq PO BID #60 tablet.er Home Medications: Atorvastatin [Lipitor] 20 mg PO HS 02/27/17 [History] Glimepiride [Amaryl] 2 mg PO 0800 02/27/17 [History] hydroCHLOROthiazide [Hydrochlorothiazide] 12.5 mg PO DAILY 03/04/17 [History] Lisinopril [Zestril] 20 mg PO DAILY #30 tablet 03/07/17 [Rx] Metoprolol Succinate 100 mg PO DAILY #30 tab.er.24h 03/07/17 [Rx] Aspirin [Lo-Dose Aspirin EC] 81 mg PO 11/27/17 [History] Calcium Carbonate/Vitamin D3 [Calcium 600 with Vit D Chew Tb] 2,000 mg PO DAILY 11/27/17 [History] Furosemide [Lasix] 40 mg PO DAILY 11/27/17 [History] Ascorbic Acid [C-500] 500 mg PO DAILY #30 tablet 11/30/17 [Rx] Cyanocobalamin (B-12) [Vitamin B12] 1,000 mcg PO DAILY #30 tablet 11/30/17 [Rx] Ferrous Sulfate 325 mg PO DAILY #30 tablet 11/30/17 [Rx] Isosorbide MONOnitrate (24 HR) [Imdur] 60 mg PO DAILY #30 tab.er.24h 11/30/17 [ Rx] Potassium Chloride [Klor-Con 10] 10 meq PO BID #60 tablet.er 11/30/17 [Rx] Allergies/Adverse Reactions: 3 Allergy/AdvReac Type Severity Reaction Status Date / Time aspirin AdvReac Nausea Verified 09/25/17 22:16 Date of admission: 11/27/17 19:54 Primary care physician: Bernadette Rojas CNP - Constitutional Vitals: Temp Pulse Resp BP Pulse Ox 98.4 F 59 18 159/77 96 11/30/17 06:48 11/30/17 06:48 11/30/17 06:48 11/30/17 06:48 11/30/17 06:48 - Patient Status Disposition: Home, Self-Care Condition: Good Overall status at discharge: patient is progressing back to baseline - Discharge Instructions Follow Up With: Bernadette Rojas, [employer] [Primary Care Provider] - 1 week - Diet and Activity Activity: resume usual activities as tolerated Diet: diabetic diet - VTE Reasons for not Prescribing Prophylaxis: Treatment not Indicated - Low risk for VTE
[2017-11-30] MEDS: Cholecalciferol (D-3) 1,000 UNIT TABLET PO SCH (09:27)
[2017-11-30] MEDS: Bumetanide 1 MG TABLET PO SCH (09:27)
[2017-11-30] MEDS: Isosorbide MONOnitrate (24 HR) 60 MG TAB.ER.24H PO SCH (09:27)
[2017-11-30] MEDS: hydroCHLOROthiazide 25 MG TABLET PO SCH (09:27)
[2017-11-30] MEDS: Metoprolol XL (24 HR) Succ 50 MG TAB.ER.24H PO SCH (09:27)
[2017-11-30] MEDS: Lisinopril 20 MG TABLET PO SCH (09:28)
[2017-11-30] MEDS: *HR* Glimepiride 2 MG TABLET PO SCH (09:28)
[2017-11-30 09:46] LABS: Estimated Average Glucose 128 mg/dl; Hemoglobin A1C 6.1 %
== END 2017-11-30 17:20 | disposition home or self-care (01) ==
LOC: EMEROOPIK 15:56 → INPPIK 15:56
PROVIDERS: ADMIT Internal Medicine; ATTEND Internal Medicine

== ENCOUNTER 2020-10-13 14:00 | Inpatient (IN) ==
[2020-10-13] MEDS ORDERED: cefTRIAXone 2,000 MG in Water for inj. (sterile) 10 ML IVP ONE (14:34)
[2020-10-13] MEDS ORDERED: Azithromycin 500 MG in 0.9 % Sodium Chloride 250 ML IVPB ONE (14:34)
[2020-10-13] MEDS ORDERED: Ipratropium/Albuterol Neb 3 ML IH ONE (14:34)
[2020-10-13] MEDS ORDERED: methylPREDNISolone 125 MG/2 ML VIAL IVP ONE (14:34)
[2020-10-13 15:18] LABS: Basophils % 0.3 %; Eosinophils % 0.4 %; Hemoglobin 10.7 g/dL (11.5-15.4); Immature Granulocytes % 0.6 % (0-4); Lymphocytes # 1.2 K/mcL (0.6-4.6); Lymphocytes % 14.6 %; Mean Corpuscular HGB Conc 28.2 g/dL (31.6-35.5); Mean Corpuscular Hemoglobin 24.9 pg (28.0-33.3); Mean Corpuscular Volume 88.4 fL (83.0-100.0); Monocytes # 0.5 K/mcL (0.0-1.3); Monocytes % 6.7 %; Neutrophils # 6.2 K/mcL (1.6-8.9); Platelet Count 247 K/mcL (140-400); Red Cell Distribution Width 16.1 % (11.5-14.5); Segmented Neutrophils % 77.4 %; White Blood Count 7.9 K/mcL (4.3-11.1)
[2020-10-13 15:47] LABS: BUN/Creatinine Ratio 35 (6-26); Blood Urea Nitrogen 32 mg/dL (8-23); Calcium 9.5 mg/dL (8.6-10.3); Carbon Dioxide 41 mEq/L (23-29); Chloride 98 mEq/L (98-107); Glucose 102 mg/dL (70-105); Osmolality,Calculated 301 (280-300); Sodium 142 mEq/L (136-145); Troponin I 0.03 ng/mL (< 0.04); eGFR For African Americans > 60 (> 60); eGFR For Non-African Americans > 60 (> 60)
[2020-10-13] MEDS ORDERED: Furosemide 40 MG/4 ML VIAL IVP ONE (15:50)
[2020-10-13 16:03] LABS: Anisocytosis 1+ (Not Present); Hypochromasia Present (Not Present); Microcytosis Present (Not Present); Platelet Estimate Normal (Normal)
[2020-10-13] MEDS ORDERED: Ondansetron 4 MG/2 ML VIAL IVP PRN (17:02)
[2020-10-13] MEDS ORDERED: Mag Hydrox/Al Hydrox/Simeth 30 ML UDC PO PRN (17:02)
[2020-10-13] MEDS ORDERED: MOM Conc 10 ML UD.LIQ PO PRN (17:02)
[2020-10-13] MEDS ORDERED: Naloxone 0.4 MG/ML INJ IVP PRN (17:02)
[2020-10-13] MEDS ORDERED: Ipratropium/Albuterol Neb 3 ML IH PRN (17:15)
[2020-10-13] MEDS ORDERED: *HR* Dextrose 50 % in Water (Vial) 50 ML VIAL IVP PRN (17:19)
[2020-10-13] MEDS ORDERED: Dextrose Gel 15 GM/37.5 ML TUBE PO PRN ×2 (17:19)
[2020-10-13] MEDS ORDERED: D5% in Water 1,000 ML IVC PRN (17:19)
[2020-10-13] MEDS: Aspirin Enteric Coated 81 MG Tablet PO SCH (21:31)
[2020-10-13] MEDS: Insulin LISPRO 300 UNITS/3 ML VIAL SUBQ SCH (21:32)
[2020-10-13] MEDS: MethylPREDNISolone 40 MG/ML VIAL IVP SCH (21:32)
[2020-10-13] MEDS: Metoprolol XL (24 HR) Succ 50 MG TAB.ER.24H PO SCH (21:32)
[2020-10-13] MEDS: lisinopriL 20 MG TABLET PO SCH (21:32)
[2020-10-13] MEDS: Budesonide/Formoterol 160/4.5 1 PUFF INH IH SCH (22:37)
[2020-10-13] MEDS: Melatonin 3 MG TABLET PO PRN (22:37)
[2020-10-14] MEDS: MethylPREDNISolone 40 MG/ML VIAL IVP SCH ×3 (06:25→20:45)
[2020-10-14] MEDS: Furosemide 40 MG/4 ML VIAL IVP SCH (06:25)
[2020-10-14] MEDS: *HR* Enoxaparin 40 MG/0.4 ML SYRINGE SQ SCH (06:25)
[2020-10-14] MEDS: Acetaminophen 325 MG TABLET PO PRN ×2 (06:51→20:45)
[2020-10-14] MEDS: Budesonide/Formoterol 160/4.5 1 PUFF INH IH SCH ×2 (07:51→20:53)
[2020-10-14 07:52] LABS: Basophils % 0.1 %; Hematocrit 37.3 % (35.3-44.9); Hemoglobin 10.7 g/dL (11.5-15.4); Lymphocytes # 0.5 K/mcL (0.6-4.6); Lymphocytes % 7.1 %; Mean Corpuscular HGB Conc 28.7 g/dL (31.6-35.5); Mean Corpuscular Hemoglobin 25.1 pg (28.0-33.3); Mean Corpuscular Volume 87.4 fL (83.0-100.0); Monocytes # 0.1 K/mcL (0.0-1.3); Monocytes % 1.3 %; Neutrophils # 6.9 K/mcL (1.6-8.9); Platelet Count 256 K/mcL (140-400); Red Blood Count 4.27 M/mcL (3.82-4.97); Red Cell Distribution Width 15.9 % (11.5-14.5); Segmented Neutrophils % 90.5 %; White Blood Count 7.6 K/mcL (4.3-11.1)
[2020-10-14 08:39] LABS: BUN/Creatinine Ratio 40 (6-26); Blood Urea Nitrogen 34 mg/dL (8-23); Calcium 9.2 mg/dL (8.6-10.3); Carbon Dioxide 42 mEq/L (23-29); Chloride 95 mEq/L (98-107); Glucose 180 mg/dL (70-105); Osmolality,Calculated 306 (280-300); Sodium 142 mEq/L (136-145); eGFR For African Americans > 60 (> 60); eGFR For Non-African Americans > 60 (> 60)
[2020-10-14] MEDS: Metoprolol XL (24 HR) Succ 50 MG TAB.ER.24H PO SCH (09:13)
[2020-10-14] MEDS: Aspirin Enteric Coated 81 MG Tablet PO SCH (09:13)
[2020-10-14] MEDS: Insulin LISPRO 300 UNITS/3 ML VIAL SUBQ SCH ×4 (09:13→20:46)
[2020-10-14] MEDS: lisinopriL 20 MG TABLET PO SCH (09:13)
[2020-10-14] MEDS: Isosorbide MONOnitrate (24 HR) 60 MG TAB.ER.24H PO SCH (09:16)
[2020-10-14] MEDS: *HR* Glimepiride 2 MG TABLET PO SCH (09:16)
[2020-10-14 09:32] LABS: Platelet Estimate Normal (Normal)
[2020-10-14] MEDS: Nystatin POWDER 30 GM BOTTLE TP SCH ×3 (12:36→20:45)
[2020-10-14] MEDS: Azithromycin 500 MG in 0.9 % Sodium Chloride 250 ML IVPB SCH (16:30)
[2020-10-14] MEDS: Melatonin 3 MG TABLET PO PRN (20:45)
[2020-10-14 22:28] LABS: Bilirubin,Urine Negative (Negative); Blood,Urine Negative (Negative); Clarity,Urine Clear (Clear); Color,Urine Yellow (Yellow); Glucose,Urine (UA) Normal (Normal); Ketones,Urine Negative (Negative); Leukocyte Esterase,Urine Negative (Negative); Nitrite,Urine Negative (Negative); PH,Urine 5.5 pH Units (5.0-8.0); Protein,Urine Negative (Neg-Trace); Specific Gravity,Urine 1.025 (1.010-1.025); Urobilinogen,Urine Normal (Normal)
[2020-10-15] MEDS: *HR* Enoxaparin 40 MG/0.4 ML SYRINGE SQ SCH (05:32)
[2020-10-15 05:54] LABS: Basophils % 0.1 %; Hematocrit 35.8 % (35.3-44.9); Hemoglobin 10.3 g/dL (11.5-15.4); Immature Granulocytes % 0.8 % (0-4); Lymphocytes # 0.5 K/mcL (0.6-4.6); Lymphocytes % 5.9 %; Mean Corpuscular HGB Conc 28.8 g/dL (31.6-35.5); Mean Corpuscular Hemoglobin 25.1 pg (28.0-33.3); Mean Corpuscular Volume 87.1 fL (83.0-100.0); Mean Platelet Volume 10.2 fL (9.4-12.4); Monocytes # 0.3 K/mcL (0.0-1.3); Monocytes % 3.3 %; Neutrophils # 7.9 K/mcL (1.6-8.9); Nucleated Red Blood Cells 0.2 /100 WBC (0); Platelet Count 248 K/mcL (140-400); Red Blood Count 4.11 M/mcL (3.82-4.97); Red Cell Distribution Width 16.1 % (11.5-14.5); Segmented Neutrophils % 89.9 %; White Blood Count 8.8 K/mcL (4.3-11.1)
[2020-10-15 06:14] LABS: BUN/Creatinine Ratio 56 (6-26); Blood Urea Nitrogen 50 mg/dL (8-23); Calcium 9.5 mg/dL (8.6-10.3); Carbon Dioxide 38 mEq/L (23-29); Chloride 98 mEq/L (98-107); Glucose 188 mg/dL (70-105); Osmolality,Calculated 314 (280-300); Potassium 4.3 mEq/L (3.5-5.1); Sodium 143 mEq/L (136-145); eGFR For African Americans > 60 (> 60); eGFR For Non-African Americans > 60 (> 60)
[2020-10-15 07:34] LABS: Anisocytosis 1+ (Not Present); Hypochromasia Present (Not Present); Ovalocytes 1+ (Not Present); Platelet Estimate Normal (Normal); Polychromasia 1+ (Not Present)
[2020-10-15] MEDS: Aspirin Enteric Coated 81 MG Tablet PO SCH (09:14)
[2020-10-15] MEDS: Isosorbide MONOnitrate (24 HR) 60 MG TAB.ER.24H PO SCH (09:14)
[2020-10-15] MEDS: lisinopriL 20 MG TABLET PO SCH (09:14)
[2020-10-15] MEDS: Metoprolol XL (24 HR) Succ 50 MG TAB.ER.24H PO SCH (09:14)
[2020-10-15] MEDS: *HR* Glimepiride 2 MG TABLET PO SCH (09:14)
[2020-10-15] MEDS: MethylPREDNISolone 40 MG/ML VIAL IVP SCH ×2 (09:15→22:15)
[2020-10-15] MEDS: Furosemide 40 MG/4 ML VIAL IVP SCH (09:15)
[2020-10-15] MEDS: Insulin LISPRO 300 UNITS/3 ML VIAL SUBQ SCH ×4 (09:16→22:15)
[2020-10-15] MEDS: Nystatin POWDER 30 GM BOTTLE TP SCH ×3 (09:36→22:20)
[2020-10-15] MEDS: Budesonide/Formoterol 160/4.5 1 PUFF INH IH SCH ×2 (11:20→21:31)
[2020-10-15] MEDS: Azithromycin 500 MG in 0.9 % Sodium Chloride 250 ML IVPB SCH (16:57)
[2020-10-16] MEDS: Isosorbide MONOnitrate (24 HR) 60 MG TAB.ER.24H PO SCH ×2 (02:35→07:47)
[2020-10-16] MEDS: *HR* Enoxaparin 40 MG/0.4 ML SYRINGE SQ SCH (05:19)
[2020-10-16] MEDS: Furosemide 40 MG/4 ML VIAL IVP SCH (07:57)
[2020-10-16] MEDS: *HR* Glimepiride 2 MG TABLET PO SCH (07:57)
[2020-10-16] MEDS: Aspirin Enteric Coated 81 MG Tablet PO SCH (07:57)
[2020-10-16] MEDS: MethylPREDNISolone 40 MG/ML VIAL IVP SCH ×2 (07:57→20:27)
[2020-10-16] MEDS: lisinopriL 20 MG TABLET PO SCH (07:57)
[2020-10-16] MEDS: Metoprolol XL (24 HR) Succ 50 MG TAB.ER.24H PO SCH (07:57)
[2020-10-16] MEDS: Nystatin POWDER 30 GM BOTTLE TP SCH ×3 (07:58→20:27)
[2020-10-16] MEDS: Insulin LISPRO 300 UNITS/3 ML VIAL SUBQ SCH ×4 (07:58→20:27)
[2020-10-16 09:51] LABS: Basophils % 0.1 %; Hematocrit 34.9 % (35.3-44.9); Hemoglobin 9.8 g/dL (11.5-15.4); Immature Granulocytes % 0.7 % (0-4); Lymphocytes # 0.5 K/mcL (0.6-4.6); Lymphocytes % 5.5 %; Mean Corpuscular HGB Conc 28.1 g/dL (31.6-35.5); Mean Corpuscular Hemoglobin 24.8 pg (28.0-33.3); Mean Corpuscular Volume 88.4 fL (83.0-100.0); Monocytes # 0.2 K/mcL (0.0-1.3); Neutrophils # 8.6 K/mcL (1.6-8.9); Platelet Count 248 K/mcL (140-400); Red Blood Count 3.95 M/mcL (3.82-4.97); Red Cell Distribution Width 16.2 % (11.5-14.5); Segmented Neutrophils % 91.7 %; White Blood Count 9.4 K/mcL (4.3-11.1)
[2020-10-16 10:27] LABS: Anisocytosis 1+ (Not Present); Hypochromasia Present (Not Present); Platelet Estimate Normal (Normal)
[2020-10-16] MEDS: Budesonide/Formoterol 160/4.5 1 PUFF INH IH SCH ×2 (10:33→22:44)
[2020-10-16 10:36] LABS: BUN/Creatinine Ratio 58 (6-26); Blood Urea Nitrogen 50 mg/dL (8-23); Calcium 9.2 mg/dL (8.6-10.3); Carbon Dioxide 40 mEq/L (23-29); Chloride 96 mEq/L (98-107); Glucose 238 mg/dL (70-105); Osmolality,Calculated 313 (280-300); Potassium 4.2 mEq/L (3.5-5.1); Sodium 141 mEq/L (136-145); eGFR For African Americans > 60 (> 60); eGFR For Non-African Americans > 60 (> 60)
[2020-10-16] MEDS: Acetaminophen 325 MG TABLET PO PRN ×2 (13:30→22:57)
[2020-10-16] MEDS: Azithromycin 500 MG in 0.9 % Sodium Chloride 250 ML IVPB SCH (15:30)
[2020-10-16] MEDS: Melatonin 3 MG TABLET PO PRN (20:27)
[2020-10-17] MEDS: *HR* Enoxaparin 40 MG/0.4 ML SYRINGE SQ SCH (06:19)
[2020-10-17] MEDS: Budesonide/Formoterol 160/4.5 1 PUFF INH IH SCH ×2 (08:51→22:21)
[2020-10-17] MEDS: Furosemide 40 MG/4 ML VIAL IVP SCH (09:33)
[2020-10-17] MEDS: MethylPREDNISolone 40 MG/ML VIAL IVP SCH (09:33)
[2020-10-17] MEDS: Aspirin Enteric Coated 81 MG Tablet PO SCH (09:33)
[2020-10-17] MEDS: *HR* Glimepiride 2 MG TABLET PO SCH (09:34)
[2020-10-17] MEDS: Metoprolol XL (24 HR) Succ 50 MG TAB.ER.24H PO SCH (09:34)
[2020-10-17] MEDS: Isosorbide MONOnitrate (24 HR) 60 MG TAB.ER.24H PO SCH (09:34)
[2020-10-17] MEDS: Insulin LISPRO 300 UNITS/3 ML VIAL SUBQ SCH ×4 (09:34→19:57)
[2020-10-17] MEDS: lisinopriL 20 MG TABLET PO SCH (09:34)
[2020-10-17] MEDS: Nystatin POWDER 30 GM BOTTLE TP SCH ×3 (09:34→19:57)
[2020-10-17] MEDS: Azithromycin 500 MG in 0.9 % Sodium Chloride 250 ML IVPB SCH (16:13)
[2020-10-17] MEDS: Acetaminophen 325 MG TABLET PO PRN (19:56)
[2020-10-17] MEDS: Melatonin 3 MG TABLET PO PRN (19:56)
[2020-10-18] MEDS: *HR* Enoxaparin 40 MG/0.4 ML SYRINGE SQ SCH (05:30)
[2020-10-18 07:53] LABS: Eosinophils % 0.1 %; Hematocrit 33.4 % (35.3-44.9); Hemoglobin 9.3 g/dL (11.5-15.4); Immature Granulocytes % 0.4 % (0-4); Lymphocytes # 1.2 K/mcL (0.6-4.6); Lymphocytes % 14.7 %; Mean Corpuscular HGB Conc 27.8 g/dL (31.6-35.5); Mean Corpuscular Volume 89.8 fL (83.0-100.0); Mean Platelet Volume 10.5 fL (9.4-12.4); Monocytes # 0.7 K/mcL (0.0-1.3); Monocytes % 8.6 %; Neutrophils # 6.1 K/mcL (1.6-8.9); Platelet Count 205 K/mcL (140-400); Red Blood Count 3.72 M/mcL (3.82-4.97); Red Cell Distribution Width 15.9 % (11.5-14.5); Segmented Neutrophils % 76.2 %
[2020-10-18 08:29] LABS: Hypochromasia Present (Not Present); Platelet Estimate Normal (Normal)
[2020-10-18] MEDS: Insulin LISPRO 300 UNITS/3 ML VIAL SUBQ SCH ×4 (08:33→20:17)
[2020-10-18] MEDS: *HR* Glimepiride 2 MG TABLET PO SCH (08:35)
[2020-10-18] MEDS: Isosorbide MONOnitrate (24 HR) 60 MG TAB.ER.24H PO SCH (08:35)
[2020-10-18] MEDS: lisinopriL 20 MG TABLET PO SCH (08:36)
[2020-10-18] MEDS: Aspirin Enteric Coated 81 MG Tablet PO SCH (08:36)
[2020-10-18] MEDS: Furosemide 40 MG TABLET PO SCH (08:36)
[2020-10-18] MEDS: predniSONE 20 MG TABLET PO SCH (08:36)
[2020-10-18] MEDS: Metoprolol XL (24 HR) Succ 50 MG TAB.ER.24H PO SCH (08:39)
[2020-10-18] MEDS: Nystatin POWDER 30 GM BOTTLE TP SCH ×3 (08:41→20:15)
[2020-10-18 08:57] LABS: BUN/Creatinine Ratio 80 (6-26); Blood Urea Nitrogen 57 mg/dL (8-23); Calcium 8.8 mg/dL (8.6-10.3); Carbon Dioxide 46 mEq/L (23-29); Chloride 98 mEq/L (98-107); Glucose 78 mg/dL (70-105); Osmolality,Calculated 311 (280-300); Potassium 4.3 mEq/L (3.5-5.1); Sodium 143 mEq/L (136-145); eGFR For African Americans > 60 (> 60); eGFR For Non-African Americans > 60 (> 60)
[2020-10-18] MEDS: Budesonide/Formoterol 160/4.5 1 PUFF INH IH SCH ×2 (08:59→22:05)
[2020-10-18] MEDS: Acetaminophen 325 MG TABLET PO PRN ×2 (09:36→20:15)
[2020-10-18] MEDS: Azithromycin 250 MG TABLET PO SCH (16:19)
[2020-10-18] MEDS: Melatonin 3 MG TABLET PO PRN (20:15)
[2020-10-19] MEDS: *HR* Enoxaparin 40 MG/0.4 ML SYRINGE SQ SCH (06:37)
[2020-10-19] MEDS: Insulin LISPRO 300 UNITS/3 ML VIAL SUBQ SCH ×4 (07:52→20:35)
[2020-10-19] MEDS: Isosorbide MONOnitrate (24 HR) 60 MG TAB.ER.24H PO SCH (08:37)
[2020-10-19] MEDS: Furosemide 40 MG TABLET PO SCH (08:37)
[2020-10-19] MEDS: lisinopriL 20 MG TABLET PO SCH (08:37)
[2020-10-19] MEDS: *HR* Glimepiride 2 MG TABLET PO SCH (08:37)
[2020-10-19] MEDS: predniSONE 20 MG TABLET PO SCH (08:37)
[2020-10-19] MEDS: Aspirin Enteric Coated 81 MG Tablet PO SCH (08:37)
[2020-10-19] MEDS: Metoprolol XL (24 HR) Succ 50 MG TAB.ER.24H PO SCH (08:38)
[2020-10-19] MEDS: Nystatin POWDER 30 GM BOTTLE TP SCH ×3 (08:38→21:15)
[2020-10-19] MEDS: Budesonide/Formoterol 160/4.5 1 PUFF INH IH SCH ×2 (08:42→21:55)
[2020-10-19 09:35] LABS: Basophils % 0.1 %; Eosinophils # 0.1 K/mcL (0.0-0.6); Eosinophils % 0.9 %; Hematocrit 32.1 % (35.3-44.9); Lymphocytes # 1.3 K/mcL (0.6-4.6); Lymphocytes % 18.5 %; Mean Corpuscular Hemoglobin 24.8 pg (28.0-33.3); Mean Corpuscular Volume 88.4 fL (83.0-100.0); Mean Platelet Volume 10.5 fL (9.4-12.4); Monocytes # 0.5 K/mcL (0.0-1.3); Monocytes % 7.4 %; Platelet Count 184 K/mcL (140-400); Red Blood Count 3.63 M/mcL (3.82-4.97); Red Cell Distribution Width 16.1 % (11.5-14.5); Segmented Neutrophils % 72.1 %; White Blood Count 6.9 K/mcL (4.3-11.1)
[2020-10-19 10:37] LABS: Platelet Estimate Normal (Normal)
[2020-10-19 10:51] LABS: BUN/Creatinine Ratio 60 (6-26); Blood Urea Nitrogen 45 mg/dL (8-23); Calcium 8.7 mg/dL (8.6-10.3); Carbon Dioxide 42 mEq/L (23-29); Chloride 96 mEq/L (98-107); Glucose 171 mg/dL (70-105); Osmolality,Calculated 310 (280-300); Potassium 3.7 mEq/L (3.5-5.1); Sodium 142 mEq/L (136-145); eGFR For African Americans > 60 (> 60); eGFR For Non-African Americans > 60 (> 60)
[2020-10-19] MEDS: Azithromycin 250 MG TABLET PO SCH (17:56)
[2020-10-19] MEDS: Melatonin 3 MG TABLET PO PRN (21:13)
[2020-10-19] MEDS: Acetaminophen 325 MG TABLET PO PRN (21:13)
[2020-10-20] MEDS: *HR* Enoxaparin 40 MG/0.4 ML SYRINGE SQ SCH (05:26)
[2020-10-20 06:41] VITALS: BP 128/54
[2020-10-20 07:15] LABS: Basophils % 0.1 %; Eosinophils % 0.5 %; Hematocrit 31.7 % (35.3-44.9); Hemoglobin 9.1 g/dL (11.5-15.4); Immature Granulocytes % 1.1 % (0-4); Lymphocytes # 1.2 K/mcL (0.6-4.6); Lymphocytes % 15.6 %; Mean Corpuscular HGB Conc 28.7 g/dL (31.6-35.5); Mean Corpuscular Hemoglobin 24.9 pg (28.0-33.3); Mean Corpuscular Volume 86.6 fL (83.0-100.0); Monocytes # 0.6 K/mcL (0.0-1.3); Monocytes % 7.5 %; Neutrophils # 5.6 K/mcL (1.6-8.9); Nucleated Red Blood Cells 0.3 /100 WBC (0); Platelet Count 197 K/mcL (140-400); Red Blood Count 3.66 M/mcL (3.82-4.97); Red Cell Distribution Width 16.2 % (11.5-14.5); Segmented Neutrophils % 75.2 %; White Blood Count 7.4 K/mcL (4.3-11.1)
[2020-10-20 08:53] LABS: Anisocytosis 1+ (Not Present); Hypochromasia Present (Not Present); Ovalocytes 1+ (Not Present); Platelet Estimate Normal (Normal); Polychromasia 1+ (Not Present)
[2020-10-20] MEDS ORDERED: Loratadine 10 MG TABLET PO SCH (09:00)
[2020-10-20 09:06] LABS: BUN/Creatinine Ratio 55 (6-26); Blood Urea Nitrogen 38 mg/dL (8-23); Calcium 8.5 mg/dL (8.6-10.3); Carbon Dioxide 44 mEq/L (23-29); Chloride 97 mEq/L (98-107); Glucose 93 mg/dL (70-105); Osmolality,Calculated 305 (280-300); Potassium 3.9 mEq/L (3.5-5.1); Sodium 143 mEq/L (136-145); eGFR For African Americans > 60 (> 60); eGFR For Non-African Americans > 60 (> 60)
[2020-10-20] MEDS: Insulin LISPRO 300 UNITS/3 ML VIAL SUBQ SCH ×2 (09:25→11:08)
[2020-10-20] MEDS: predniSONE 20 MG TABLET PO SCH (10:00)
[2020-10-20] MEDS: Furosemide 40 MG TABLET PO SCH (10:00)
[2020-10-20] MEDS: Isosorbide MONOnitrate (24 HR) 60 MG TAB.ER.24H PO SCH (10:00)
[2020-10-20] MEDS: *HR* Glimepiride 2 MG TABLET PO SCH (10:01)
[2020-10-20] MEDS: Metoprolol XL (24 HR) Succ 50 MG TAB.ER.24H PO SCH (10:01)
[2020-10-20] MEDS: Aspirin Enteric Coated 81 MG Tablet PO SCH (10:01)
[2020-10-20] MEDS: lisinopriL 20 MG TABLET PO SCH (10:01)
[2020-10-20] MEDS: Budesonide/Formoterol 160/4.5 1 PUFF INH IH SCH (10:02)
[2020-10-20] MEDS: Nystatin POWDER 30 GM BOTTLE TP SCH (10:03)
== END 2020-10-20 12:48 | disposition other institution (70) | DRG 292 ==
LOC: EMEROOPIK 14:00 → INPPIK 14:00
PROVIDERS: ADMIT Family Medicine; ATTEND Family Medicine

== ENCOUNTER 2020-10-20 11:52 | Inpatient (IN) ==
[2020-10-20] MEDS ORDERED: Ipratropium/Albuterol Neb 3 ML IH PRN (12:23)
[2020-10-20] MEDS: acetaZOLAMIDE 250 MG TABLET PO SCH ×2 (14:23→21:15)
[2020-10-20] MEDS: Nystatin POWDER 30 GM BOTTLE TP SCH ×2 (16:09→21:12)
[2020-10-20] MEDS ORDERED: Dextrose Gel 15 GM/37.5 ML TUBE PO PRN ×2 (16:57)
[2020-10-20] MEDS ORDERED: *HR* Dextrose 50 % in Water (Vial) 50 ML VIAL IVP PRN (16:57)
[2020-10-20] MEDS ORDERED: D5% in Water 1,000 ML IVC PRN (16:57)
[2020-10-20] MEDS: Insulin LISPRO 300 UNITS/3 ML VIAL SUBQ SCH ×2 (17:05→21:12)
[2020-10-20] MEDS: Acetaminophen 325 MG TABLET PO PRN (21:11)
[2020-10-20] MEDS: Budesonide/Formoterol 160/4.5 1 PUFF INH IH SCH (21:57)
[2020-10-21] MEDS: *HR* Enoxaparin 40 MG/0.4 ML SYRINGE SQ SCH (05:05)
[2020-10-21 05:48] LABS: Basophils % 0.1 %; Eosinophils % 0.4 %; Hematocrit 29.2 % (35.3-44.9); Hemoglobin 8.3 g/dL (11.5-15.4); Immature Granulocytes % 0.9 % (0-4); Lymphocytes # 1.4 K/mcL (0.6-4.6); Lymphocytes % 14.3 %; Mean Corpuscular HGB Conc 28.4 g/dL (31.6-35.5); Mean Corpuscular Hemoglobin 24.9 pg (28.0-33.3); Mean Corpuscular Volume 87.4 fL (83.0-100.0); Mean Platelet Volume 10.9 fL (9.4-12.4); Monocytes # 0.6 K/mcL (0.0-1.3); Monocytes % 6.1 %; Neutrophils # 7.8 K/mcL (1.6-8.9); Platelet Count 207 K/mcL (140-400); Red Blood Count 3.34 M/mcL (3.82-4.97); Red Cell Distribution Width 16.6 % (11.5-14.5); Segmented Neutrophils % 78.2 %; White Blood Count 9.9 K/mcL (4.3-11.1)
[2020-10-21 06:21] LABS: BUN/Creatinine Ratio 67 (6-26); Blood Urea Nitrogen 51 mg/dL (8-23); Calcium 8.6 mg/dL (8.6-10.3); Carbon Dioxide 37 mEq/L (23-29); Chloride 101 mEq/L (98-107); Glucose 109 mg/dL (70-105); Osmolality,Calculated 306 (280-300); Potassium 3.7 mEq/L (3.5-5.1); Sodium 141 mEq/L (136-145); eGFR For African Americans > 60 (> 60); eGFR For Non-African Americans > 60 (> 60)
[2020-10-21 06:24] LABS: Hypochromasia Present (Not Present); Platelet Estimate Normal (Normal)
[2020-10-21] MEDS: Insulin LISPRO 300 UNITS/3 ML VIAL SUBQ SCH ×4 (07:09→20:39)
[2020-10-21] MEDS: acetaZOLAMIDE 250 MG TABLET PO SCH ×2 (08:57→20:38)
[2020-10-21] MEDS: *HR* Glimepiride 2 MG TABLET PO SCH (08:57)
[2020-10-21] MEDS: Loratadine 10 MG TABLET PO SCH (08:57)
[2020-10-21] MEDS: Isosorbide MONOnitrate (24 HR) 60 MG TAB.ER.24H PO SCH (08:57)
[2020-10-21] MEDS: Furosemide 40 MG TABLET PO SCH (08:57)
[2020-10-21] MEDS: Aspirin Enteric Coated 81 MG Tablet PO SCH (08:57)
[2020-10-21] MEDS ORDERED: Metoprolol XL (24 HR) Succ 50 MG TAB.ER.24H PO SCH (09:00)
[2020-10-21] MEDS ORDERED: lisinopriL 20 MG TABLET PO SCH (09:00)
[2020-10-21] MEDS: Nystatin POWDER 30 GM BOTTLE TP SCH ×3 (09:16→20:41)
[2020-10-21] MEDS: Budesonide/Formoterol 160/4.5 1 PUFF INH IH SCH ×2 (10:05→21:31)
[2020-10-22] MEDS: *HR* Enoxaparin 40 MG/0.4 ML SYRINGE SQ SCH (05:05)
[2020-10-22] MEDS: Insulin LISPRO 300 UNITS/3 ML VIAL SUBQ SCH ×4 (07:40→20:53)
[2020-10-22] MEDS: acetaZOLAMIDE 250 MG TABLET PO SCH ×2 (08:12→20:52)
[2020-10-22] MEDS: Loratadine 10 MG TABLET PO SCH (08:13)
[2020-10-22] MEDS: Furosemide 40 MG TABLET PO SCH (08:13)
[2020-10-22] MEDS: Aspirin Enteric Coated 81 MG Tablet PO SCH (08:13)
[2020-10-22] MEDS: *HR* Glimepiride 2 MG TABLET PO SCH (08:13)
[2020-10-22] MEDS: Isosorbide MONOnitrate (24 HR) 60 MG TAB.ER.24H PO SCH (08:26)
[2020-10-22] MEDS: Nystatin POWDER 30 GM BOTTLE TP SCH ×3 (08:28→20:53)
[2020-10-22] MEDS: Metoprolol XL (24 HR) Succ 50 MG TAB.ER.24H PO SCH (08:53)
[2020-10-22] MEDS: Budesonide/Formoterol 160/4.5 1 PUFF INH IH SCH ×2 (09:33→22:00)
[2020-10-23] MEDS: *HR* Enoxaparin 40 MG/0.4 ML SYRINGE SQ SCH (06:07)
[2020-10-23] MEDS: Insulin LISPRO 300 UNITS/3 ML VIAL SUBQ SCH ×4 (07:14→20:14)
[2020-10-23] MEDS: Loratadine 10 MG TABLET PO SCH (08:11)
[2020-10-23] MEDS: Furosemide 40 MG TABLET PO SCH (08:12)
[2020-10-23] MEDS: *HR* Glimepiride 2 MG TABLET PO SCH (08:12)
[2020-10-23] MEDS: Metoprolol XL (24 HR) Succ 50 MG TAB.ER.24H PO SCH (08:12)
[2020-10-23] MEDS: Aspirin Enteric Coated 81 MG Tablet PO SCH (08:13)
[2020-10-23] MEDS: Isosorbide MONOnitrate (24 HR) 60 MG TAB.ER.24H PO SCH (08:13)
[2020-10-23] MEDS: Nystatin POWDER 30 GM BOTTLE TP SCH ×3 (08:16→20:15)
[2020-10-23] MEDS: Budesonide/Formoterol 160/4.5 1 PUFF INH IH SCH ×2 (09:29→21:30)
[2020-10-23] MEDS: Acetaminophen 325 MG TABLET PO PRN (15:56)
[2020-10-23] MEDS ORDERED: Simethicone 80 MG TAB.CHEW PO PRN (22:37)
[2020-10-23] MEDS: Melatonin 3 MG TABLET PO PRN (22:48)
[2020-10-24] MEDS: *HR* Enoxaparin 40 MG/0.4 ML SYRINGE SQ SCH (05:51)
[2020-10-24] MEDS: Isosorbide MONOnitrate (24 HR) 60 MG TAB.ER.24H PO SCH (10:20)
[2020-10-24] MEDS: Loratadine 10 MG TABLET PO SCH (10:20)
[2020-10-24] MEDS: *HR* Glimepiride 2 MG TABLET PO SCH (10:20)
[2020-10-24] MEDS: Metoprolol XL (24 HR) Succ 50 MG TAB.ER.24H PO SCH (10:20)
[2020-10-24] MEDS: Aspirin Enteric Coated 81 MG Tablet PO SCH (10:20)
[2020-10-24] MEDS: Insulin LISPRO 300 UNITS/3 ML VIAL SUBQ SCH ×4 (10:20→20:20)
[2020-10-24] MEDS: Furosemide 40 MG TABLET PO SCH (10:20)
[2020-10-24] MEDS: Nystatin POWDER 30 GM BOTTLE TP SCH ×3 (10:21→20:20)
[2020-10-24] MEDS: Budesonide/Formoterol 160/4.5 1 PUFF INH IH SCH ×2 (10:29→22:18)
[2020-10-24] MEDS: Melatonin 3 MG TABLET PO PRN (22:57)
[2020-10-24] MEDS: Acetaminophen 325 MG TABLET PO PRN (22:59)
[2020-10-25] MEDS: *HR* Enoxaparin 40 MG/0.4 ML SYRINGE SQ SCH (06:22)
[2020-10-25] MEDS: Metoprolol XL (24 HR) Succ 50 MG TAB.ER.24H PO SCH (08:50)
[2020-10-25] MEDS: Insulin LISPRO 300 UNITS/3 ML VIAL SUBQ SCH ×4 (08:50→20:12)
[2020-10-25] MEDS: *HR* Glimepiride 2 MG TABLET PO SCH (08:50)
[2020-10-25] MEDS: Aspirin Enteric Coated 81 MG Tablet PO SCH (08:51)
[2020-10-25] MEDS: Loratadine 10 MG TABLET PO SCH (08:51)
[2020-10-25] MEDS: Isosorbide MONOnitrate (24 HR) 60 MG TAB.ER.24H PO SCH (08:51)
[2020-10-25] MEDS: Nystatin POWDER 30 GM BOTTLE TP SCH ×3 (08:51→20:28)
[2020-10-25] MEDS: Furosemide 40 MG TABLET PO SCH (08:51)
[2020-10-25] MEDS: Budesonide/Formoterol 160/4.5 1 PUFF INH IH SCH ×2 (10:25→20:36)
[2020-10-25] MEDS: Acetaminophen 325 MG TABLET PO PRN (20:20)
[2020-10-25] MEDS: Melatonin 3 MG TABLET PO PRN (20:20)
[2020-10-26] MEDS: *HR* Enoxaparin 40 MG/0.4 ML SYRINGE SQ SCH (05:58)
[2020-10-26 06:49] VITALS: BP 130/78
[2020-10-26] MEDS: Insulin LISPRO 300 UNITS/3 ML VIAL SUBQ SCH ×2 (08:42→11:59)
[2020-10-26] MEDS: Aspirin Enteric Coated 81 MG Tablet PO SCH (08:44)
[2020-10-26] MEDS: Isosorbide MONOnitrate (24 HR) 60 MG TAB.ER.24H PO SCH (08:44)
[2020-10-26] MEDS: *HR* Glimepiride 2 MG TABLET PO SCH (08:44)
[2020-10-26] MEDS: Loratadine 10 MG TABLET PO SCH (08:44)
[2020-10-26] MEDS: Furosemide 40 MG TABLET PO SCH (08:44)
[2020-10-26] MEDS: Metoprolol XL (24 HR) Succ 50 MG TAB.ER.24H PO SCH (08:44)
[2020-10-26] MEDS: Nystatin POWDER 30 GM BOTTLE TP SCH (08:44)
[2020-10-26] MEDS: Budesonide/Formoterol 160/4.5 1 PUFF INH IH SCH (10:53)
== END 2020-10-26 14:35 | disposition home health service (06) | DRG 945 ==
LOC: INPPIK 13:24
PROVIDERS: ADMIT Family Medicine; ATTEND Family Medicine

== ENCOUNTER 2020-11-10 11:15 | Inpatient (IN) ==
[2020-11-10] MEDS ORDERED: Melatonin 3 MG TABLET PO ONE (21:31)
[2020-11-10] MEDS: Budesonide/Formoterol 160/4.5 1 PUFF INH IH SCH (21:41)
[2020-11-11] MEDS: Ondansetron ODT 4 MG TAB.RAPDIS SL PRN (01:11)
[2020-11-11] MEDS: Aspirin Enteric Coated 81 MG Tablet PO SCH (08:50)
[2020-11-11] MEDS: Isosorbide MONOnitrate (24 HR) 60 MG TAB.ER.24H PO SCH (08:51)
[2020-11-11] MEDS: Metoprolol XL (24 HR) Succ 50 MG TAB.ER.24H PO SCH (08:51)
[2020-11-11] MEDS: Furosemide 40 MG TABLET PO SCH (08:51)
[2020-11-11] MEDS: Cyanocobalamin (B-12) 1,000 MCG TABLET PO SCH (08:51)
[2020-11-11] MEDS: *HR* Glimepiride 2 MG TABLET PO SCH (08:51)
[2020-11-11] MEDS: Budesonide/Formoterol 160/4.5 1 PUFF INH IH SCH ×2 (09:28→22:09)
[2020-11-11] MEDS: Amoxicillin 500 MG CAPSULE PO SCH (21:06)
[2020-11-12 06:55] LABS: Hematocrit 26.9 % (35.3-44.9); Hemoglobin 7.6 g/dL (11.5-15.4); Mean Corpuscular HGB Conc 28.3 g/dL (31.6-35.5); Mean Corpuscular Hemoglobin 26.7 pg (28.0-33.3); Mean Corpuscular Volume 94.4 fL (83.0-100.0); Mean Platelet Volume 9.7 fL (9.4-12.4); Platelet Count 142 K/mcL (140-400); Red Blood Count 2.85 M/mcL (3.82-4.97); White Blood Count 4.2 K/mcL (4.3-11.1)
[2020-11-12 07:33] LABS: BUN/Creatinine Ratio 49 (6-26); Blood Urea Nitrogen 35 mg/dL (8-23); Calcium 8.6 mg/dL (8.6-10.3); Carbon Dioxide 44 mEq/L (23-29); Chloride 98 mEq/L (98-107); Glucose 89 mg/dL (70-105); Osmolality,Calculated 305 (280-300); Sodium 144 mEq/L (136-145); eGFR For African Americans > 60 (> 60); eGFR For Non-African Americans > 60 (> 60)
[2020-11-12] MEDS: Budesonide/Formoterol 160/4.5 1 PUFF INH IH SCH ×2 (09:40→20:19)
[2020-11-12] MEDS: Metoprolol XL (24 HR) Succ 50 MG TAB.ER.24H PO SCH (10:22)
[2020-11-12] MEDS: Furosemide 40 MG TABLET PO SCH (10:22)
[2020-11-12] MEDS: Aspirin Enteric Coated 81 MG Tablet PO SCH (10:22)
[2020-11-12] MEDS: Amoxicillin 500 MG CAPSULE PO SCH ×2 (10:22→21:06)
[2020-11-12] MEDS: Cyanocobalamin (B-12) 1,000 MCG TABLET PO SCH (10:22)
[2020-11-12] MEDS: Isosorbide MONOnitrate (24 HR) 60 MG TAB.ER.24H PO SCH (10:23)
[2020-11-12] MEDS: *HR* Glimepiride 2 MG TABLET PO SCH (10:23)
[2020-11-13] MEDS: Aspirin Enteric Coated 81 MG Tablet PO SCH (07:49)
[2020-11-13] MEDS: Cyanocobalamin (B-12) 1,000 MCG TABLET PO SCH (07:49)
[2020-11-13] MEDS: Amoxicillin 500 MG CAPSULE PO SCH ×2 (07:49→19:34)
[2020-11-13] MEDS: Furosemide 40 MG TABLET PO SCH (07:49)
[2020-11-13] MEDS: Isosorbide MONOnitrate (24 HR) 60 MG TAB.ER.24H PO SCH (07:49)
[2020-11-13] MEDS: *HR* Glimepiride 2 MG TABLET PO SCH (07:50)
[2020-11-13] MEDS: Metoprolol XL (24 HR) Succ 50 MG TAB.ER.24H PO SCH (07:56)
[2020-11-13] MEDS: Budesonide/Formoterol 160/4.5 1 PUFF INH IH SCH ×2 (10:31→21:26)
[2020-11-13] MEDS: Insulin LISPRO 300 UNITS/3 ML VIAL SUBQ SCH ×2 (17:05→20:45)
[2020-11-14] MEDS: Aspirin Enteric Coated 81 MG Tablet PO SCH (08:28)
[2020-11-14] MEDS: Metoprolol XL (24 HR) Succ 50 MG TAB.ER.24H PO SCH (08:28)
[2020-11-14] MEDS: Cyanocobalamin (B-12) 1,000 MCG TABLET PO SCH (08:29)
[2020-11-14] MEDS: Insulin LISPRO 300 UNITS/3 ML VIAL SUBQ SCH ×4 (08:29→20:49)
[2020-11-14] MEDS: Isosorbide MONOnitrate (24 HR) 60 MG TAB.ER.24H PO SCH (08:29)
[2020-11-14] MEDS: *HR* Glimepiride 2 MG TABLET PO SCH (08:29)
[2020-11-14] MEDS: Furosemide 40 MG TABLET PO SCH (08:29)
[2020-11-14] MEDS: Amoxicillin 500 MG CAPSULE PO SCH ×2 (08:29→20:47)
[2020-11-14] MEDS: Budesonide/Formoterol 160/4.5 1 PUFF INH IH SCH ×2 (09:09→21:15)
[2020-11-15 05:40] LABS: Basophils % 0.2 %; Eosinophils # 0.1 K/mcL (0.0-0.6); Hematocrit 25.1 % (35.3-44.9); Hemoglobin 7.4 g/dL (11.5-15.4); Immature Granulocytes % 1.5 % (0-4); Lymphocytes # 0.9 K/mcL (0.6-4.6); Lymphocytes % 20.9 %; Mean Corpuscular HGB Conc 29.5 g/dL (31.6-35.5); Mean Corpuscular Hemoglobin 27.5 pg (28.0-33.3); Mean Corpuscular Volume 93.3 fL (83.0-100.0); Mean Platelet Volume 11.7 fL (9.4-12.4); Monocytes # 0.2 K/mcL (0.0-1.3); Monocytes % 5.7 %; Neutrophils # 2.9 K/mcL (1.6-8.9); Nucleated Red Blood Cells 0.7 /100 WBC (0); Platelet Count 185 K/mcL (140-400); Red Blood Count 2.69 M/mcL (3.82-4.97); Red Cell Distribution Width 20.2 % (11.5-14.5); Segmented Neutrophils % 69.7 %; White Blood Count 4.1 K/mcL (4.3-11.1)
[2020-11-15 07:31] LABS: BUN/Creatinine Ratio 34 (6-26); Blood Urea Nitrogen 26 mg/dL (8-23); Calcium 8.4 mg/dL (8.6-10.3); Carbon Dioxide 41 mEq/L (23-29); Chloride 101 mEq/L (98-107); Glucose 127 mg/dL (70-105); Osmolality,Calculated 302 (280-300); Potassium 4.1 mEq/L (3.5-5.1); Sodium 143 mEq/L (136-145); eGFR For African Americans > 60 (> 60); eGFR For Non-African Americans > 60 (> 60)
[2020-11-15] MEDS: Insulin LISPRO 300 UNITS/3 ML VIAL SUBQ SCH ×4 (08:44→20:19)
[2020-11-15] MEDS: Amoxicillin 500 MG CAPSULE PO SCH ×2 (08:45→20:18)
[2020-11-15] MEDS: Aspirin Enteric Coated 81 MG Tablet PO SCH (08:45)
[2020-11-15] MEDS: Cyanocobalamin (B-12) 1,000 MCG TABLET PO SCH (08:45)
[2020-11-15] MEDS: Isosorbide MONOnitrate (24 HR) 60 MG TAB.ER.24H PO SCH (08:45)
[2020-11-15] MEDS: Metoprolol XL (24 HR) Succ 50 MG TAB.ER.24H PO SCH (08:45)
[2020-11-15] MEDS: *HR* Glimepiride 2 MG TABLET PO SCH (08:45)
[2020-11-15] MEDS: Furosemide 40 MG TABLET PO SCH (08:46)
[2020-11-15] MEDS: Budesonide/Formoterol 160/4.5 1 PUFF INH IH SCH ×2 (09:12→22:38)
[2020-11-16] MEDS: Cyanocobalamin (B-12) 1,000 MCG TABLET PO SCH (09:05)
[2020-11-16] MEDS: Isosorbide MONOnitrate (24 HR) 60 MG TAB.ER.24H PO SCH (09:05)
[2020-11-16] MEDS: Aspirin Enteric Coated 81 MG Tablet PO SCH (09:05)
[2020-11-16] MEDS: Furosemide 40 MG TABLET PO SCH (09:06)
[2020-11-16] MEDS: *HR* Glimepiride 2 MG TABLET PO SCH (09:06)
[2020-11-16] MEDS: Metoprolol XL (24 HR) Succ 50 MG TAB.ER.24H PO SCH (09:06)
[2020-11-16] MEDS: Amoxicillin 500 MG CAPSULE PO SCH ×2 (09:06→19:45)
[2020-11-16] MEDS: Insulin LISPRO 300 UNITS/3 ML VIAL SUBQ SCH ×4 (09:06→21:10)
[2020-11-16] MEDS: Budesonide/Formoterol 160/4.5 1 PUFF INH IH SCH ×2 (09:55→19:56)
[2020-11-16] MEDS: acetaZOLAMIDE 250 MG TABLET PO SCH ×2 (13:50→19:45)
[2020-11-17] MEDS: Isosorbide MONOnitrate (24 HR) 60 MG TAB.ER.24H PO SCH (07:54)
[2020-11-17] MEDS: Aspirin Enteric Coated 81 MG Tablet PO SCH (07:54)
[2020-11-17] MEDS: Metoprolol XL (24 HR) Succ 50 MG TAB.ER.24H PO SCH (07:54)
[2020-11-17] MEDS: Insulin LISPRO 300 UNITS/3 ML VIAL SUBQ SCH ×4 (07:54→21:47)
[2020-11-17] MEDS: *HR* Glimepiride 2 MG TABLET PO SCH (07:54)
[2020-11-17] MEDS: Cyanocobalamin (B-12) 1,000 MCG TABLET PO SCH (07:55)
[2020-11-17] MEDS: acetaZOLAMIDE 250 MG TABLET PO SCH ×2 (07:55→21:46)
[2020-11-17] MEDS: Amoxicillin 500 MG CAPSULE PO SCH ×2 (07:55→21:46)
[2020-11-17] MEDS: Budesonide/Formoterol 160/4.5 1 PUFF INH IH SCH ×2 (10:04→22:30)
[2020-11-18] MEDS: Insulin LISPRO 300 UNITS/3 ML VIAL SUBQ SCH ×4 (07:31→20:41)
[2020-11-18] MEDS: Cyanocobalamin (B-12) 1,000 MCG TABLET PO SCH (09:00)
[2020-11-18] MEDS: Aspirin Enteric Coated 81 MG Tablet PO SCH (09:00)
[2020-11-18] MEDS: *HR* Glimepiride 2 MG TABLET PO SCH (09:00)
[2020-11-18] MEDS: Isosorbide MONOnitrate (24 HR) 60 MG TAB.ER.24H PO SCH (09:00)
[2020-11-18] MEDS: acetaZOLAMIDE 250 MG TABLET PO SCH ×2 (09:00→20:40)
[2020-11-18] MEDS: Metoprolol XL (24 HR) Succ 50 MG TAB.ER.24H PO SCH (09:00)
[2020-11-18] MEDS: Amoxicillin 500 MG CAPSULE PO SCH ×2 (09:00→20:40)
[2020-11-18] MEDS: Budesonide/Formoterol 160/4.5 1 PUFF INH IH SCH ×2 (09:34→21:35)
[2020-11-19] MEDS: Insulin LISPRO 300 UNITS/3 ML VIAL SUBQ SCH ×4 (08:52→20:53)
[2020-11-19] MEDS: Cyanocobalamin (B-12) 1,000 MCG TABLET PO SCH (08:53)
[2020-11-19] MEDS: Amoxicillin 500 MG CAPSULE PO SCH ×2 (08:53→20:52)
[2020-11-19] MEDS: *HR* Glimepiride 2 MG TABLET PO SCH (08:53)
[2020-11-19] MEDS: Aspirin Enteric Coated 81 MG Tablet PO SCH (08:53)
[2020-11-19] MEDS: Isosorbide MONOnitrate (24 HR) 60 MG TAB.ER.24H PO SCH (08:53)
[2020-11-19] MEDS: Metoprolol XL (24 HR) Succ 50 MG TAB.ER.24H PO SCH (08:53)
[2020-11-19] MEDS: Budesonide/Formoterol 160/4.5 1 PUFF INH IH SCH ×2 (10:03→21:52)
[2020-11-19] MEDS: Ondansetron ODT 4 MG TAB.RAPDIS SL PRN (12:32)
[2020-11-20 05:29] VITALS: BP 124/59
[2020-11-20] MEDS: Insulin LISPRO 300 UNITS/3 ML VIAL SUBQ SCH (08:29)
[2020-11-20] MEDS: Amoxicillin 500 MG CAPSULE PO SCH (08:38)
[2020-11-20] MEDS: Aspirin Enteric Coated 81 MG Tablet PO SCH (08:38)
[2020-11-20] MEDS: Furosemide 40 MG TABLET PO SCH (08:38)
[2020-11-20] MEDS: *HR* Glimepiride 2 MG TABLET PO SCH (08:39)
[2020-11-20] MEDS: Isosorbide MONOnitrate (24 HR) 60 MG TAB.ER.24H PO SCH (08:39)
[2020-11-20] MEDS: Cyanocobalamin (B-12) 1,000 MCG TABLET PO SCH (08:39)
[2020-11-20] MEDS: Metoprolol XL (24 HR) Succ 50 MG TAB.ER.24H PO SCH (08:39)
[2020-11-20] MEDS: Budesonide/Formoterol 160/4.5 1 PUFF INH IH SCH (09:15)
== END 2020-11-20 11:30 | disposition home health service (06) | DRG 377 ==
LOC: INPPIK 14:14
PROVIDERS: ADMIT Family Medicine; ATTEND Family Medicine

== ENCOUNTER 2020-11-22 09:20 | Observation (INO) ==
[2020-11-22 10:31] LABS: Basophils % 0.4 %; Eosinophils % 0.2 %; Hemoglobin 7.6 g/dL (11.5-15.4); Immature Granulocytes % 2.2 % (0-4); Lymphocytes # 0.6 K/mcL (0.6-4.6); Lymphocytes % 11.1 %; Mean Corpuscular HGB Conc 29.2 g/dL (31.6-35.5); Mean Corpuscular Hemoglobin 27.2 pg (28.0-33.3); Mean Corpuscular Volume 93.2 fL (83.0-100.0); Mean Platelet Volume 9.6 fL (9.4-12.4); Monocytes # 0.3 K/mcL (0.0-1.3); Monocytes % 5.7 %; Neutrophils # 4.4 K/mcL (1.6-8.9); Nucleated Red Blood Cells 0.6 /100 WBC (0); Platelet Count 208 K/mcL (140-400); Red Blood Count 2.79 M/mcL (3.82-4.97); Red Cell Distribution Width 19.4 % (11.5-14.5); Segmented Neutrophils % 80.4 %; White Blood Count 5.4 K/mcL (4.3-11.1)
[2020-11-22 10:44] LABS: BUN/Creatinine Ratio 29 (6-26); Blood Urea Nitrogen 20 mg/dL (8-23); Calcium 8.7 mg/dL (8.6-10.3); Carbon Dioxide 36 mEq/L (23-29); Chloride 102 mEq/L (98-107); Glucose 139 mg/dL (70-105); Osmolality,Calculated 295 (280-300); Potassium 3.6 mEq/L (3.5-5.1); Sodium 140 mEq/L (136-145); eGFR For African Americans > 60 (> 60); eGFR For Non-African Americans > 60 (> 60)
[2020-11-22] MEDS ORDERED: Naloxone 0.4 MG/ML INJ IVP PRN (11:15)
[2020-11-22] MEDS: Ondansetron ODT 4 MG TAB.RAPDIS SL PRN (17:25)
[2020-11-22] MEDS: Amoxicillin 500 MG CAPSULE PO SCH (20:20)
[2020-11-22] MEDS: Acetaminophen 325 MG TABLET PO PRN (20:35)
[2020-11-22] MEDS: Budesonide/Formoterol 160/4.5 1 PUFF INH IH SCH (21:30)
[2020-11-23 07:54] LABS: BUN/Creatinine Ratio 22 (6-26); Blood Urea Nitrogen 15 mg/dL (8-23); Calcium 8.9 mg/dL (8.6-10.3); Carbon Dioxide 41 mEq/L (23-29); Chloride 102 mEq/L (98-107); Glucose 102 mg/dL (70-105); Osmolality,Calculated 297 (280-300); Potassium 3.8 mEq/L (3.5-5.1); Sodium 143 mEq/L (136-145); eGFR For African Americans > 60 (> 60); eGFR For Non-African Americans > 60 (> 60)
[2020-11-23] MEDS: *HR* Glimepiride 2 MG TABLET PO SCH (09:15)
[2020-11-23] MEDS: Isosorbide MONOnitrate (24 HR) 60 MG TAB.ER.24H PO SCH (09:15)
[2020-11-23] MEDS: Amoxicillin 500 MG CAPSULE PO SCH ×2 (09:15→19:42)
[2020-11-23] MEDS: Furosemide 40 MG TABLET PO SCH (09:15)
[2020-11-23] MEDS: Metoprolol XL (24 HR) Succ 50 MG TAB.ER.24H PO SCH (09:15)
[2020-11-23] MEDS: Ondansetron ODT 4 MG TAB.RAPDIS SL PRN (09:18)
[2020-11-23] MEDS: Budesonide/Formoterol 160/4.5 1 PUFF INH IH SCH ×2 (10:03→20:14)
[2020-11-23] MEDS: Acetaminophen 325 MG TABLET PO PRN (22:38)
[2020-11-24 06:24] LABS: Hematocrit 29.3 % (35.3-44.9); Hemoglobin 8.4 g/dL (11.5-15.4); Mean Corpuscular HGB Conc 28.7 g/dL (31.6-35.5); Mean Corpuscular Hemoglobin 27.9 pg (28.0-33.3); Mean Corpuscular Volume 97.3 fL (83.0-100.0); Mean Platelet Volume 9.1 fL (9.4-12.4); Platelet Count 159 K/mcL (140-400); Red Blood Count 3.01 M/mcL (3.82-4.97); Red Cell Distribution Width 19.6 % (11.5-14.5); White Blood Count 4.3 K/mcL (4.3-11.1)
[2020-11-24 06:56] LABS: BUN/Creatinine Ratio 18 (6-26); Blood Urea Nitrogen 13 mg/dL (8-23); Calcium 8.6 mg/dL (8.6-10.3); Carbon Dioxide 44 mEq/L (23-29); Chloride 99 mEq/L (98-107); Glucose 97 mg/dL (70-105); Osmolality,Calculated 296 (280-300); Potassium 3.6 mEq/L (3.5-5.1); Sodium 143 mEq/L (136-145); eGFR For African Americans > 60 (> 60); eGFR For Non-African Americans > 60 (> 60)
[2020-11-24] MEDS: acetaZOLAMIDE 250 MG TABLET PO SCH ×2 (07:55→21:24)
[2020-11-24] MEDS: Metoprolol XL (24 HR) Succ 50 MG TAB.ER.24H PO SCH (07:55)
[2020-11-24] MEDS: Amoxicillin 500 MG CAPSULE PO SCH ×2 (07:55→21:23)
[2020-11-24] MEDS: Isosorbide MONOnitrate (24 HR) 60 MG TAB.ER.24H PO SCH (07:56)
[2020-11-24] MEDS: *HR* Glimepiride 2 MG TABLET PO SCH (07:56)
[2020-11-24] MEDS: Budesonide/Formoterol 160/4.5 1 PUFF INH IH SCH ×2 (09:21→21:30)
[2020-11-24] MEDS: Ondansetron ODT 4 MG TAB.RAPDIS SL PRN (18:40)
[2020-11-24] MEDS: Acetaminophen 325 MG TABLET PO PRN (21:23)
[2020-11-25] MEDS: Acetaminophen 325 MG TABLET PO PRN ×2 (03:25→20:43)
[2020-11-25] MEDS: *HR* Enoxaparin 40 MG/0.4 ML SYRINGE SQ SCH (05:39)
[2020-11-25 06:21] LABS: Basophils % 0.3 %; Eosinophils % 0.5 %; Hematocrit 27.5 % (35.3-44.9); Hemoglobin 7.8 g/dL (11.5-15.4); Immature Granulocytes % 0.8 % (0-4); Lymphocytes # 0.7 K/mcL (0.6-4.6); Lymphocytes % 17.3 %; Mean Corpuscular HGB Conc 28.4 g/dL (31.6-35.5); Mean Corpuscular Hemoglobin 27.2 pg (28.0-33.3); Mean Corpuscular Volume 95.8 fL (83.0-100.0); Mean Platelet Volume 9.7 fL (9.4-12.4); Monocytes # 0.3 K/mcL (0.0-1.3); Monocytes % 7.1 %; Neutrophils # 2.8 K/mcL (1.6-8.9); Platelet Count 159 K/mcL (140-400); Red Blood Count 2.87 M/mcL (3.82-4.97); Red Cell Distribution Width 19.6 % (11.5-14.5); White Blood Count 3.8 K/mcL (4.3-11.1)
[2020-11-25 06:48] LABS: BUN/Creatinine Ratio 19 (6-26); Blood Urea Nitrogen 14 mg/dL (8-23); Calcium 8.8 mg/dL (8.6-10.3); Carbon Dioxide 40 mEq/L (23-29); Chloride 99 mEq/L (98-107); Glucose 96 mg/dL (70-105); Osmolality,Calculated 294 (280-300); Potassium 3.6 mEq/L (3.5-5.1); Sodium 142 mEq/L (136-145); eGFR For African Americans > 60 (> 60); eGFR For Non-African Americans > 60 (> 60)
[2020-11-25 06:53] LABS: Anisocytosis 1+ (Not Present); Macrocytosis Present (Not Present); Microcytosis Present (Not Present); Platelet Estimate Normal (Normal); Tear Drop Cells 1+ (Not Present)
[2020-11-25 06:56] LABS: Hypochromasia Present (Not Present)
[2020-11-25] MEDS ORDERED: Dextrose Gel 15 GM/37.5 ML TUBE PO PRN ×2 (08:22)
[2020-11-25] MEDS ORDERED: D5% in Water 1,000 ML IVC PRN (08:22)
[2020-11-25] MEDS ORDERED: *HR* Dextrose 50 % in Water (Vial) 50 ML VIAL IVP PRN (08:22)
[2020-11-25] MEDS: Budesonide/Formoterol 160/4.5 1 PUFF INH IH SCH ×2 (09:31→21:26)
[2020-11-25] MEDS: Metoprolol XL (24 HR) Succ 50 MG TAB.ER.24H PO SCH (09:52)
[2020-11-25] MEDS: *HR* Glimepiride 2 MG TABLET PO SCH (09:53)
[2020-11-25] MEDS: Amoxicillin 500 MG CAPSULE PO SCH ×2 (09:53→20:02)
[2020-11-25] MEDS: Isosorbide MONOnitrate (24 HR) 60 MG TAB.ER.24H PO SCH (09:53)
[2020-11-25] MEDS: acetaZOLAMIDE 250 MG TABLET PO SCH ×2 (09:53→20:02)
[2020-11-25] MEDS: Insulin LISPRO 300 UNITS/3 ML VIAL SUBQ SCH ×2 (11:28→17:21)
[2020-11-25] MEDS: Ondansetron ODT 4 MG TAB.RAPDIS SL PRN (15:37)
[2020-11-25] MEDS ORDERED: Insulin LISPRO 300 UNITS/3 ML VIAL SUBQ SCH (21:00)
[2020-11-26] MEDS: *HR* Enoxaparin 40 MG/0.4 ML SYRINGE SQ SCH (05:39)
[2020-11-26 06:26] VITALS: BP 145/71
[2020-11-26 07:31] LABS: Basophils % 0.6 %; Eosinophils % 0.8 %; Hematocrit 28.7 % (35.3-44.9); Immature Granulocytes % 0.8 % (0-4); Lymphocytes # 0.6 K/mcL (0.6-4.6); Lymphocytes % 16.4 %; Mean Corpuscular HGB Conc 27.9 g/dL (31.6-35.5); Mean Corpuscular Hemoglobin 27.3 pg (28.0-33.3); Mean Platelet Volume 10.1 fL (9.4-12.4); Monocytes # 0.3 K/mcL (0.0-1.3); Monocytes % 7.5 %; Neutrophils # 2.7 K/mcL (1.6-8.9); Nucleated Red Blood Cells 0.6 /100 WBC (0); Platelet Count 165 K/mcL (140-400); Red Blood Count 2.93 M/mcL (3.82-4.97); Red Cell Distribution Width 19.8 % (11.5-14.5); Segmented Neutrophils % 73.9 %; White Blood Count 3.6 K/mcL (4.3-11.1)
[2020-11-26 07:59] LABS: BUN/Creatinine Ratio 21 (6-26); Blood Urea Nitrogen 15 mg/dL (8-23); Calcium 8.9 mg/dL (8.6-10.3); Carbon Dioxide 39 mEq/L (23-29); Chloride 101 mEq/L (98-107); Glucose 93 mg/dL (70-105); Osmolality,Calculated 299 (280-300); Potassium 3.6 mEq/L (3.5-5.1); Sodium 144 mEq/L (136-145); eGFR For African Americans > 60 (> 60); eGFR For Non-African Americans > 60 (> 60)
[2020-11-26] MEDS: Amoxicillin 500 MG CAPSULE PO SCH (08:01)
[2020-11-26] MEDS: *HR* Glimepiride 2 MG TABLET PO SCH (08:01)
[2020-11-26] MEDS: Insulin LISPRO 300 UNITS/3 ML VIAL SUBQ SCH ×2 (08:01→11:28)
[2020-11-26] MEDS: Furosemide 40 MG TABLET PO SCH (08:01)
[2020-11-26] MEDS: Metoprolol XL (24 HR) Succ 50 MG TAB.ER.24H PO SCH (08:01)
[2020-11-26] MEDS: Isosorbide MONOnitrate (24 HR) 60 MG TAB.ER.24H PO SCH (08:02)
[2020-11-26 08:58] LABS: Anisocytosis 1+ (Not Present); Hypochromasia Present (Not Present); Platelet Estimate Normal (Normal)
[2020-11-26] MEDS: Budesonide/Formoterol 160/4.5 1 PUFF INH IH SCH (10:00)
== END 2020-11-26 12:43 | disposition other institution (70) ==
LOC: SUPCPDRO → EMEROOPIK 09:20 → INPPIK 09:20
PROVIDERS: ADMIT Family Medicine; ATTEND Family Medicine

== ENCOUNTER 2020-11-26 11:34 | Inpatient (IN) ==
[2020-11-26] MEDS ORDERED: D5% in Water 1,000 ML IVC PRN (11:46)
[2020-11-26] MEDS ORDERED: *HR* Dextrose 50 % in Water (Vial) 50 ML VIAL IVP PRN (11:47)
[2020-11-26] MEDS ORDERED: Dextrose Gel 15 GM/37.5 ML TUBE PO SCH (12:00)
[2020-11-26] MEDS ORDERED: Dextrose Gel 15 GM/37.5 ML TUBE PO PRN (13:20)
[2020-11-26] MEDS: Insulin LISPRO 300 UNITS/3 ML VIAL SUBQ SCH ×2 (16:08→20:34)
[2020-11-26] MEDS: Budesonide/Formoterol 160/4.5 1 PUFF INH IH SCH (20:30)
[2020-11-27] MEDS: *HR* Enoxaparin 40 MG/0.4 ML SYRINGE SQ SCH (05:22)
[2020-11-27] MEDS: Isosorbide MONOnitrate (24 HR) 60 MG TAB.ER.24H PO SCH (08:13)
[2020-11-27] MEDS: Insulin LISPRO 300 UNITS/3 ML VIAL SUBQ SCH ×4 (08:13→20:21)
[2020-11-27] MEDS: Cyanocobalamin (B-12) 1,000 MCG TABLET PO SCH (08:13)
[2020-11-27] MEDS: Furosemide 40 MG TABLET PO SCH (08:13)
[2020-11-27] MEDS: *HR* Glimepiride 2 MG TABLET PO SCH (08:13)
[2020-11-27] MEDS: Metoprolol XL (24 HR) Succ 50 MG TAB.ER.24H PO SCH (08:13)
[2020-11-27] MEDS: Aspirin Enteric Coated 81 MG Tablet PO SCH (08:13)
[2020-11-27] MEDS ORDERED: Furosemide 40 MG TABLET PO SCH (09:00)
[2020-11-27] MEDS: Budesonide/Formoterol 160/4.5 1 PUFF INH IH SCH ×2 (09:38→21:18)
[2020-11-27] MEDS: Ondansetron ODT 4 MG TAB.RAPDIS SL PRN (18:43)
[2020-11-27] MEDS: Acetaminophen 325 MG TABLET PO PRN (20:25)
[2020-11-28] MEDS: *HR* Enoxaparin 40 MG/0.4 ML SYRINGE SQ SCH (05:57)
[2020-11-28 06:31] LABS: Eosinophils % 0.8 %; Hemoglobin 8.5 g/dL (11.5-15.4); Immature Granulocytes % 0.8 % (0-4); Lymphocytes # 0.6 K/mcL (0.6-4.6); Lymphocytes % 16.3 %; Mean Corpuscular HGB Conc 28.3 g/dL (31.6-35.5); Mean Corpuscular Hemoglobin 27.7 pg (28.0-33.3); Mean Corpuscular Volume 97.7 fL (83.0-100.0); Mean Platelet Volume 9.9 fL (9.4-12.4); Monocytes # 0.3 K/mcL (0.0-1.3); Monocytes % 6.7 %; Neutrophils # 2.9 K/mcL (1.6-8.9); Platelet Count 150 K/mcL (140-400); Red Blood Count 3.07 M/mcL (3.82-4.97); Red Cell Distribution Width 19.9 % (11.5-14.5); Segmented Neutrophils % 75.4 %; White Blood Count 3.9 K/mcL (4.3-11.1)
[2020-11-28 07:01] LABS: Anisocytosis 1+ (Not Present)
[2020-11-28 07:02] LABS: Macrocytosis Present (Not Present); Microcytosis Present (Not Present); Platelet Estimate Normal (Normal)
[2020-11-28 07:04] LABS: BUN/Creatinine Ratio 24 (6-26); Blood Urea Nitrogen 16 mg/dL (8-23); Carbon Dioxide 43 mEq/L (23-29); Chloride 99 mEq/L (98-107); Glucose 114 mg/dL (70-105); Osmolality,Calculated 302 (280-300); Potassium 3.7 mEq/L (3.5-5.1); Sodium 145 mEq/L (136-145); eGFR For African Americans > 60 (> 60); eGFR For Non-African Americans > 60 (> 60)
[2020-11-28] MEDS: Insulin LISPRO 300 UNITS/3 ML VIAL SUBQ SCH ×4 (08:16→20:56)
[2020-11-28] MEDS: Isosorbide MONOnitrate (24 HR) 60 MG TAB.ER.24H PO SCH (08:41)
[2020-11-28] MEDS: Furosemide 40 MG TABLET PO SCH (08:41)
[2020-11-28] MEDS: Metoprolol XL (24 HR) Succ 50 MG TAB.ER.24H PO SCH (08:42)
[2020-11-28] MEDS: Cyanocobalamin (B-12) 1,000 MCG TABLET PO SCH (08:42)
[2020-11-28] MEDS: Aspirin Enteric Coated 81 MG Tablet PO SCH (08:42)
[2020-11-28] MEDS: *HR* Glimepiride 2 MG TABLET PO SCH (08:42)
[2020-11-28] MEDS: Budesonide/Formoterol 160/4.5 1 PUFF INH IH SCH ×2 (08:52→21:38)
[2020-11-28] MEDS: Acetaminophen 325 MG TABLET PO PRN ×2 (14:29→20:57)
[2020-11-28] MEDS: Ondansetron ODT 4 MG TAB.RAPDIS SL PRN (20:58)
[2020-11-29] MEDS: *HR* Enoxaparin 40 MG/0.4 ML SYRINGE SQ SCH (05:07)
[2020-11-29] MEDS: Budesonide/Formoterol 160/4.5 1 PUFF INH IH SCH ×2 (07:36→21:19)
[2020-11-29] MEDS: *HR* Glimepiride 2 MG TABLET PO SCH (08:40)
[2020-11-29] MEDS: Metoprolol XL (24 HR) Succ 50 MG TAB.ER.24H PO SCH (08:40)
[2020-11-29] MEDS: Isosorbide MONOnitrate (24 HR) 60 MG TAB.ER.24H PO SCH (08:40)
[2020-11-29] MEDS: Cyanocobalamin (B-12) 1,000 MCG TABLET PO SCH (08:40)
[2020-11-29] MEDS: Aspirin Enteric Coated 81 MG Tablet PO SCH (08:40)
[2020-11-29] MEDS: Insulin LISPRO 300 UNITS/3 ML VIAL SUBQ SCH ×4 (08:41→20:14)
[2020-11-29] MEDS: Furosemide 40 MG TABLET PO SCH (08:41)
[2020-11-29] MEDS: Acetaminophen 325 MG TABLET PO PRN (20:18)
[2020-11-30] MEDS: Ondansetron ODT 4 MG TAB.RAPDIS SL PRN (03:11)
[2020-11-30] MEDS: *HR* Enoxaparin 40 MG/0.4 ML SYRINGE SQ SCH (04:51)
[2020-11-30] MEDS: Budesonide/Formoterol 160/4.5 1 PUFF INH IH SCH ×2 (07:28→20:58)
[2020-11-30] MEDS: Insulin LISPRO 300 UNITS/3 ML VIAL SUBQ SCH ×4 (08:32→21:13)
[2020-11-30] MEDS: Aspirin Enteric Coated 81 MG Tablet PO SCH (08:34)
[2020-11-30] MEDS: Isosorbide MONOnitrate (24 HR) 60 MG TAB.ER.24H PO SCH (08:34)
[2020-11-30] MEDS: Cyanocobalamin (B-12) 1,000 MCG TABLET PO SCH (08:35)
[2020-11-30] MEDS: *HR* Glimepiride 2 MG TABLET PO SCH (08:35)
[2020-11-30] MEDS: Furosemide 40 MG TABLET PO SCH (08:35)
[2020-11-30] MEDS: Metoprolol XL (24 HR) Succ 50 MG TAB.ER.24H PO SCH (08:35)
[2020-11-30] MEDS: Acetaminophen 325 MG TABLET PO PRN ×2 (08:38→21:10)
[2020-12-01] MEDS: *HR* Enoxaparin 40 MG/0.4 ML SYRINGE SQ SCH (05:37)
[2020-12-01] MEDS: Aspirin Enteric Coated 81 MG Tablet PO SCH (08:06)
[2020-12-01] MEDS: Metoprolol XL (24 HR) Succ 50 MG TAB.ER.24H PO SCH (08:06)
[2020-12-01] MEDS: Furosemide 40 MG TABLET PO SCH (08:06)
[2020-12-01] MEDS: *HR* Glimepiride 2 MG TABLET PO SCH (08:06)
[2020-12-01] MEDS: Isosorbide MONOnitrate (24 HR) 60 MG TAB.ER.24H PO SCH (08:06)
[2020-12-01] MEDS: Insulin LISPRO 300 UNITS/3 ML VIAL SUBQ SCH ×4 (08:14→19:48)
[2020-12-01] MEDS: Cyanocobalamin (B-12) 1,000 MCG TABLET PO SCH (08:15)
[2020-12-01] MEDS: Budesonide/Formoterol 160/4.5 1 PUFF INH IH SCH ×2 (09:24→20:08)
[2020-12-01 10:12] LABS: BUN/Creatinine Ratio 26 (6-26); Blood Urea Nitrogen 17 mg/dL (8-23); Calcium 8.9 mg/dL (8.6-10.3); Carbon Dioxide 45 mEq/L (23-29); Chloride 98 mEq/L (98-107); Glucose 159 mg/dL (70-105); Magnesium 1.9 mg/dL (1.6-2.6); Osmolality,Calculated 305 (280-300); Sodium 145 mEq/L (136-145); eGFR For African Americans > 60 (> 60); eGFR For Non-African Americans > 60 (> 60)
[2020-12-01] MEDS: Acetaminophen 325 MG TABLET PO PRN (19:53)
[2020-12-02] MEDS: Ondansetron ODT 4 MG TAB.RAPDIS SL PRN (01:16)
[2020-12-02] MEDS: *HR* Enoxaparin 40 MG/0.4 ML SYRINGE SQ SCH (06:01)
[2020-12-02] MEDS: Insulin LISPRO 300 UNITS/3 ML VIAL SUBQ SCH ×4 (07:37→20:01)
[2020-12-02] MEDS: Metoprolol XL (24 HR) Succ 50 MG TAB.ER.24H PO SCH (07:52)
[2020-12-02] MEDS: Cyanocobalamin (B-12) 1,000 MCG TABLET PO SCH (07:52)
[2020-12-02] MEDS: Isosorbide MONOnitrate (24 HR) 60 MG TAB.ER.24H PO SCH (07:52)
[2020-12-02] MEDS: *HR* Glimepiride 2 MG TABLET PO SCH (07:52)
[2020-12-02] MEDS: Furosemide 40 MG TABLET PO SCH (07:52)
[2020-12-02] MEDS: Aspirin Enteric Coated 81 MG Tablet PO SCH (07:52)
[2020-12-02] MEDS: Budesonide/Formoterol 160/4.5 1 PUFF INH IH SCH ×2 (09:28→20:28)
[2020-12-02] MEDS: Acetaminophen 325 MG TABLET PO PRN (20:00)
[2020-12-03] MEDS: *HR* Enoxaparin 40 MG/0.4 ML SYRINGE SQ SCH (06:51)
[2020-12-03] MEDS: Insulin LISPRO 300 UNITS/3 ML VIAL SUBQ SCH ×4 (08:31→20:09)
[2020-12-03] MEDS: *HR* Glimepiride 2 MG TABLET PO SCH (09:07)
[2020-12-03] MEDS: Cyanocobalamin (B-12) 1,000 MCG TABLET PO SCH (09:07)
[2020-12-03] MEDS: Furosemide 40 MG TABLET PO SCH (09:07)
[2020-12-03] MEDS: Metoprolol XL (24 HR) Succ 50 MG TAB.ER.24H PO SCH (09:07)
[2020-12-03] MEDS: Aspirin Enteric Coated 81 MG Tablet PO SCH (09:07)
[2020-12-03] MEDS: Isosorbide MONOnitrate (24 HR) 60 MG TAB.ER.24H PO SCH (09:07)
[2020-12-03] MEDS: Budesonide/Formoterol 160/4.5 1 PUFF INH IH SCH ×2 (09:41→20:19)
[2020-12-03 11:42] LABS: Hematocrit 32.9 % (35.3-44.9); Hemoglobin 9.2 g/dL (11.5-15.4); Mean Corpuscular Hemoglobin 27.8 pg (28.0-33.3); Mean Corpuscular Volume 99.4 fL (83.0-100.0); Mean Platelet Volume 9.4 fL (9.4-12.4); Platelet Count 129 K/mcL (140-400); Red Blood Count 3.31 M/mcL (3.82-4.97); Red Cell Distribution Width 19.7 % (11.5-14.5); White Blood Count 4.7 K/mcL (4.3-11.1)
[2020-12-03 12:00] LABS: Troponin I < 0.03 ng/mL (< 0.04)
[2020-12-03 12:16] LABS: BUN/Creatinine Ratio 33 (6-26); Blood Urea Nitrogen 21 mg/dL (8-23); Calcium 9.3 mg/dL (8.6-10.3); Carbon Dioxide > 45 mEq/L (23-29); Chloride 95 mEq/L (98-107); Glucose 148 mg/dL (70-105); Osmolality,Calculated 302 (280-300); Potassium 4.2 mEq/L (3.5-5.1); Sodium 143 mEq/L (136-145); eGFR For African Americans > 60 (> 60); eGFR For Non-African Americans > 60 (> 60)
[2020-12-03] MEDS: Acetaminophen 325 MG TABLET PO PRN (20:07)
[2020-12-03] MEDS: *HR* LORazepam 0.5 MG TABLET PO PRN (20:20)
[2020-12-03] MEDS: Ondansetron ODT 4 MG TAB.RAPDIS SL PRN (20:20)
[2020-12-04] MEDS: *HR* Enoxaparin 40 MG/0.4 ML SYRINGE SQ SCH (06:30)
[2020-12-04] MEDS: Insulin LISPRO 300 UNITS/3 ML VIAL SUBQ SCH ×4 (08:38→19:32)
[2020-12-04] MEDS: Metoprolol XL (24 HR) Succ 50 MG TAB.ER.24H PO SCH (08:44)
[2020-12-04] MEDS: *HR* Glimepiride 2 MG TABLET PO SCH (08:44)
[2020-12-04] MEDS: Aspirin Enteric Coated 81 MG Tablet PO SCH (08:45)
[2020-12-04] MEDS: Furosemide 40 MG TABLET PO SCH (08:45)
[2020-12-04] MEDS: Isosorbide MONOnitrate (24 HR) 60 MG TAB.ER.24H PO SCH (08:45)
[2020-12-04] MEDS: Cyanocobalamin (B-12) 1,000 MCG TABLET PO SCH (08:45)
[2020-12-04] MEDS: Budesonide/Formoterol 160/4.5 1 PUFF INH IH SCH ×2 (09:32→21:50)
[2020-12-04 10:19] LABS: BUN/Creatinine Ratio 28 (6-26); Blood Urea Nitrogen 19 mg/dL (8-23); Calcium 9.1 mg/dL (8.6-10.3); Carbon Dioxide 49 mEq/L (23-29); Chloride 95 mEq/L (98-107); Glucose 167 mg/dL (70-105); Osmolality,Calculated 304 (280-300); Potassium 3.9 mEq/L (3.5-5.1); Sodium 144 mEq/L (136-145); eGFR For African Americans > 60 (> 60); eGFR For Non-African Americans > 60 (> 60)
[2020-12-04] MEDS: Nystatin POWDER 30 GM BOTTLE TP SCH ×2 (15:34→19:31)
[2020-12-04] MEDS: acetaZOLAMIDE 250 MG TABLET PO SCH ×2 (15:34→19:30)
[2020-12-04] MEDS: Acetaminophen 325 MG TABLET PO PRN (19:30)
[2020-12-05] MEDS: *HR* Enoxaparin 40 MG/0.4 ML SYRINGE SQ SCH (06:15)
[2020-12-05] MEDS: Insulin LISPRO 300 UNITS/3 ML VIAL SUBQ SCH ×4 (07:47→19:36)
[2020-12-05] MEDS: acetaZOLAMIDE 250 MG TABLET PO SCH ×2 (08:43→19:44)
[2020-12-05] MEDS: Metoprolol XL (24 HR) Succ 50 MG TAB.ER.24H PO SCH (08:43)
[2020-12-05] MEDS: Cyanocobalamin (B-12) 1,000 MCG TABLET PO SCH (08:44)
[2020-12-05] MEDS: Aspirin Enteric Coated 81 MG Tablet PO SCH (08:44)
[2020-12-05] MEDS: Isosorbide MONOnitrate (24 HR) 60 MG TAB.ER.24H PO SCH (08:44)
[2020-12-05] MEDS: Nystatin POWDER 30 GM BOTTLE TP SCH ×3 (08:44→19:46)
[2020-12-05] MEDS: *HR* Glimepiride 2 MG TABLET PO SCH (08:44)
[2020-12-05] MEDS: Furosemide 40 MG TABLET PO SCH (08:44)
[2020-12-05] MEDS: Budesonide/Formoterol 160/4.5 1 PUFF INH IH SCH ×2 (10:20→21:26)
[2020-12-05] MEDS: Acetaminophen 325 MG TABLET PO PRN (19:43)
[2020-12-05] MEDS: *HR* LORazepam 0.5 MG TABLET PO PRN (19:44)
[2020-12-06] MEDS: *HR* Enoxaparin 40 MG/0.4 ML SYRINGE SQ SCH (05:15)
[2020-12-06] MEDS: Insulin LISPRO 300 UNITS/3 ML VIAL SUBQ SCH ×4 (07:28→19:36)
[2020-12-06] MEDS: Aspirin Enteric Coated 81 MG Tablet PO SCH (08:17)
[2020-12-06] MEDS: Acetaminophen 325 MG TABLET PO PRN ×2 (08:17→19:45)
[2020-12-06] MEDS: Furosemide 40 MG TABLET PO SCH (08:18)
[2020-12-06] MEDS: Cyanocobalamin (B-12) 1,000 MCG TABLET PO SCH (08:18)
[2020-12-06] MEDS: acetaZOLAMIDE 250 MG TABLET PO SCH (08:18)
[2020-12-06] MEDS: Metoprolol XL (24 HR) Succ 50 MG TAB.ER.24H PO SCH (08:18)
[2020-12-06] MEDS: *HR* Glimepiride 2 MG TABLET PO SCH (08:18)
[2020-12-06] MEDS: Isosorbide MONOnitrate (24 HR) 60 MG TAB.ER.24H PO SCH (08:18)
[2020-12-06] MEDS: Nystatin POWDER 30 GM BOTTLE TP SCH ×3 (08:24→19:45)
[2020-12-06 08:41] LABS: BUN/Creatinine Ratio 23 (6-26); Blood Urea Nitrogen 14 mg/dL (8-23); Carbon Dioxide 39 mEq/L (23-29); Chloride 100 mEq/L (98-107); Glucose 101 mg/dL (70-105); Osmolality,Calculated 295 (280-300); Potassium 3.8 mEq/L (3.5-5.1); Sodium 142 mEq/L (136-145); eGFR For African Americans > 60 (> 60); eGFR For Non-African Americans > 60 (> 60)
[2020-12-06] MEDS: Budesonide/Formoterol 160/4.5 1 PUFF INH IH SCH ×2 (11:07→21:40)
[2020-12-06] MEDS: *HR* LORazepam 0.5 MG TABLET PO PRN (12:44)
[2020-12-07] MEDS: *HR* Enoxaparin 40 MG/0.4 ML SYRINGE SQ SCH (05:21)
[2020-12-07] MEDS: Insulin LISPRO 300 UNITS/3 ML VIAL SUBQ SCH ×4 (08:57→19:39)
[2020-12-07] MEDS: Furosemide 40 MG TABLET PO SCH (09:21)
[2020-12-07] MEDS: *HR* Glimepiride 2 MG TABLET PO SCH (09:21)
[2020-12-07] MEDS: Cyanocobalamin (B-12) 1,000 MCG TABLET PO SCH (09:21)
[2020-12-07] MEDS: Aspirin Enteric Coated 81 MG Tablet PO SCH (09:21)
[2020-12-07] MEDS: Isosorbide MONOnitrate (24 HR) 60 MG TAB.ER.24H PO SCH (09:21)
[2020-12-07] MEDS: Metoprolol XL (24 HR) Succ 50 MG TAB.ER.24H PO SCH (09:21)
[2020-12-07] MEDS: Nystatin POWDER 30 GM BOTTLE TP SCH ×3 (09:22→20:23)
[2020-12-07] MEDS: Budesonide/Formoterol 160/4.5 1 PUFF INH IH SCH ×2 (11:17→21:48)
[2020-12-07] MEDS: Acetaminophen 325 MG TABLET PO PRN (19:29)
[2020-12-08] MEDS: *HR* Glimepiride 2 MG TABLET PO SCH (08:07)
[2020-12-08] MEDS: Isosorbide MONOnitrate (24 HR) 60 MG TAB.ER.24H PO SCH (08:07)
[2020-12-08] MEDS: Insulin LISPRO 300 UNITS/3 ML VIAL SUBQ SCH ×4 (08:07→19:42)
[2020-12-08] MEDS: Aspirin Enteric Coated 81 MG Tablet PO SCH (08:07)
[2020-12-08] MEDS: Furosemide 40 MG TABLET PO SCH (08:07)
[2020-12-08] MEDS: Cyanocobalamin (B-12) 1,000 MCG TABLET PO SCH (08:07)
[2020-12-08] MEDS: Metoprolol XL (24 HR) Succ 50 MG TAB.ER.24H PO SCH (08:07)
[2020-12-08] MEDS: Nystatin POWDER 30 GM BOTTLE TP SCH ×3 (08:08→19:42)
[2020-12-08] MEDS: *HR* Enoxaparin 40 MG/0.4 ML SYRINGE SQ SCH (08:08)
[2020-12-08] MEDS: Budesonide/Formoterol 160/4.5 1 PUFF INH IH SCH ×2 (09:36→22:03)
[2020-12-08] MEDS: Acetaminophen 325 MG TABLET PO PRN (19:46)
[2020-12-09] MEDS: *HR* Enoxaparin 40 MG/0.4 ML SYRINGE SQ SCH (06:23)
[2020-12-09] MEDS: Insulin LISPRO 300 UNITS/3 ML VIAL SUBQ SCH ×4 (07:27→20:03)
[2020-12-09] MEDS: Metoprolol XL (24 HR) Succ 50 MG TAB.ER.24H PO SCH (08:08)
[2020-12-09] MEDS: Isosorbide MONOnitrate (24 HR) 60 MG TAB.ER.24H PO SCH (08:08)
[2020-12-09] MEDS: Furosemide 40 MG TABLET PO SCH (08:08)
[2020-12-09] MEDS: Cyanocobalamin (B-12) 1,000 MCG TABLET PO SCH (08:09)
[2020-12-09] MEDS: Aspirin Enteric Coated 81 MG Tablet PO SCH (08:09)
[2020-12-09] MEDS: Nystatin POWDER 30 GM BOTTLE TP SCH ×3 (08:09→20:08)
[2020-12-09] MEDS: *HR* Glimepiride 2 MG TABLET PO SCH (08:09)
[2020-12-09] MEDS: Budesonide/Formoterol 160/4.5 1 PUFF INH IH SCH ×2 (10:11→21:56)
[2020-12-09] MEDS: Acetaminophen 325 MG TABLET PO PRN (18:32)
[2020-12-09 20:29] LABS: Bilirubin,Urine Negative (Negative); Blood,Urine Small (Negative); Clarity,Urine Other (Clear); Color,Urine Yellow (Yellow); Glucose,Urine (UA) Normal (Normal); Ketones,Urine Negative (Negative); Leukocyte Esterase,Urine Negative (Negative); Nitrite,Urine Negative (Negative); Protein,Urine Negative (Neg-Trace); Urobilinogen,Urine Normal (Normal)
[2020-12-09 20:37] LABS: Bacteria,Urine Few per hpf (None-Few); Mucus,Urine Few per lpf (None-Few); Squamous Epithelial Cell,Urine Moderate per hpf (None-Few)
[2020-12-09 20:38] LABS: Hyaline Casts,Urine Few per lpf (None Seen)
[2020-12-10] MEDS: *HR* Enoxaparin 40 MG/0.4 ML SYRINGE SQ SCH (06:22)
[2020-12-10 06:52] VITALS: BP 172/77
[2020-12-10] MEDS: Metoprolol XL (24 HR) Succ 50 MG TAB.ER.24H PO SCH (08:23)
[2020-12-10] MEDS: Isosorbide MONOnitrate (24 HR) 60 MG TAB.ER.24H PO SCH (08:23)
[2020-12-10] MEDS: Furosemide 40 MG TABLET PO SCH (08:23)
[2020-12-10] MEDS: *HR* Glimepiride 2 MG TABLET PO SCH (08:23)
[2020-12-10] MEDS: Aspirin Enteric Coated 81 MG Tablet PO SCH (08:23)
[2020-12-10] MEDS: Cyanocobalamin (B-12) 1,000 MCG TABLET PO SCH (08:24)
[2020-12-10] MEDS: Insulin LISPRO 300 UNITS/3 ML VIAL SUBQ SCH ×2 (08:25→11:43)
[2020-12-10] MEDS: Nystatin POWDER 30 GM BOTTLE TP SCH (08:25)
[2020-12-10] MEDS: Budesonide/Formoterol 160/4.5 1 PUFF INH IH SCH (11:08)
== END 2020-12-10 13:20 | disposition home health service (06) | DRG 945 ==
LOC: INPPIK 12:48
PROVIDERS: ADMIT Family Medicine; ATTEND Family Medicine